=== PATIENT | male | born 1945 | race Caucasian/White ===

== ENCOUNTER 2019-04-28 23:58 | Emergency (ER) | payer BC, MEDICARE ==
[~2019-04-28] VITALS: Ht 180.3 cm; Wt 117.9 kg
[~2019-04-28 23:58] MED LIST: ACHD5005 PO; AMIO200T10 PO; ASP81TEC PO; METO25TA PO; OXYC1TAB28 PO; SULF1TAB38 PO; TMSL.4C PO
[2019-04-29] MEDS ORDERED: ASPIRIN 81 MG CHEW (CHILDREN'S ASA) PO ONE
[2019-04-29] MEDS ORDERED: meTOprolol 5 MG/5 ML (LOPRESSOR) VIAL IV ONE (00:15)
[2019-04-29] MEDS ORDERED: NITROGLYCERIN 2% OINT 1 GM UNIT DOSE PACKET TOP ONE (00:15)
[2019-04-29] MEDS ORDERED: ONDANSETRON 4 MG/2 ML (SDV) Z0FRAN IVP ONE (00:15)
[2019-04-29 00:18] LABS: HEMATOCRIT 37 % (40-54); HEMOGLOBIN 11.9 G/DL (13.3-17.7); MEAN CORPUSCULAR HEMOGLOBIN 28 PG (25-34); MEAN CORPUSCULAR HGB CONC 32 G/DL (32-36); MEAN CORPUSCULAR VOLUME 86 FL (80-99); MEAN PLATELET VOLUME 9.6 FL (7.4-10.4); PLATELET COUNT 217 10^3/uL (130-400); RED CELL DISTRIBUTION WIDTH 15.1 % (10.0-14.5); WHITE BLOOD COUNT 7.2 10^3/uL (4.3-11.0)
[2019-04-29 00:21] LABS: BASOPHILS % (AUTO) 0 % (0-10); EOSINOPHILS # (AUTO) 0.3 10^3/uL (0.0-0.3); EOSINOPHILS % (AUTO) 4 % (0-10); LYMPHOCYTES # (AUTO) 2.1 X 10^3 (1.0-4.0); LYMPHOCYTES % (AUTO) 29 % (12-44); MONOCYTES % (AUTO) 14 % (0-12); NEUTROPHILS # (AUTO) 3.9 X 10^3 (1.8-7.8); NEUTROPHILS % (AUTO) 53 % (42-75)
--- NOTE | 2019-04-29 00:28 | ED Chest Pain ---
General Chief Complaint: Chest Pain Stated Complaint: CHEST PAIN Nursing Triage Note: Pt started having chest pain around 2230 last night. Pt said it hasn't gotten any better so he came to ER. 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 Nursing Sepsis Screen: No Definite Risk Source: patient History of Present Illness Date Seen by Provider: Apr 29, 2019 Time Seen by Provider: 23:58 Initial Comments 73-year-old male presenting with complaints of epigastric and substernal chest pain. He states that it is a burning and sharp pain. He states that this same sort of pain he was having when he had four-vessel bypass. 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 He states that he last saw them a few weeks ago. He does have a pacemaker but is not sure if it's a defibrillator. He states that the pain started around 10:30 PM and came on while he was sitting at rest. He denies having anything make the pain worse. He has not tried taking anything for the pain better. Because the pain was feeling similar to when he had to have bypass surgery he finally came to the emergency department to be evaluated. He was having some mild nausea with this. He states that the pain is not moving anywhere in his chest pain was substernal and epigastric area. It does not go to his jaw or back or his arms. Allergies and Home Medications Allergies Coded Allergies: No Known Drug Allergies (Unverified , 01/05/12) Home Medications Amiodarone Hcl 200 Mg Tablet, 200 MG PO DAILY, (Reported) Aspirin 81 Mg Tabec, 81 MG PO DAILY, (Reported) Metoprolol Succinate 25 Mg Tab.sr.24h, 12.5 MG PO BID, (Reported) Tamsulosin Hcl 0.4 Mg Cap, 0.4 MG PO DAILY, (Reported) take 1/2 hour after supper in [place] Patient Home Medication List Home Medication List Reviewed: Yes Review of Systems Review of Systems Constitutional: No chills, No fever; malaise EENTM: No Symptoms Reported Respiratory: No Symptoms Reported Cardiovascular: See HPI Gastrointestinal: See HPI Genitourinary: No Symptoms Reported Musculoskeletal: no symptoms reported Skin: no symptoms reported Psychiatric/Neurological: No Symptoms Reported Endocrine: No Symptoms Reported Hematologic/Lymphatic: No Symptoms Reported Past Xlrpskl-Bqlkyz-Ricszs Hx Past Med/Social Hx: Reviewed Nursing Past Med/Soc Hx Patient Social History Alcohol Use: Denies Use Recreational Drug Use: No Smoking Status: Never a Smoker 2nd Hand Smoke Exposure: No Recent Foreign Travel: No Contact w/Someone Who Travel: No Recent Infectious Disease Expo: No Recent Hopitalizations: No Seasonal Allergies Seasonal Allergies: No Past Medical History Surgeries: Yes Coronary Stent, Defibrillator, Open Heart Surgery, Pacemaker Respiratory: No Cardiac: Yes Heart Attack, High Cholesterol, Hypertension Neurological: No Reproductive Disorders: No Genitourinary: No Gastrointestinal: No Musculoskeletal: No Endocrine: No HEENT: No Cancer: No Psychosocial: No Integumentary: No Blood Disorders: No Physical Exam Vital Signs Vital Signs - First Documented 04/29/19 04/29/19 00:05 00:30 Temp 97.1 Pulse 90 Resp 18 B/P (MAP) 165/76 (105) Pulse Ox 96 O2 Delivery Room Air O2 Flow Rate 2.00 FiO2 96 Capillary Refill : Less Than 3 Seconds Height, Weight, BMI Height: 5'11.00" Weight: 260lbs. oz. 117.746180af; BMI Method:Stated General Appearance: WD/WN, Mild Distress, Obese HEENT: PERRL/EOMI, Normal ENT Inspection, Pharynx Normal Neck: Normal Inspection, Non Tender, Supple Respiratory: Lungs Clear, Normal Breath Sounds, No Accessory Muscle Use, No Respiratory Distress; No Crackles, No Rhonci, No Stridor, No Wheezing; Other (sternal tenderness) Cardiovascular: Normal Peripheral Pulses, Extra Beats, Irregularly Irregular Gastrointestinal: Normal Bowel Sounds, No Pulsatile Mass, Soft, Tenderness (epigastric and sternal) Rectal: Deferred Extremity: Normal Capillary Refill, Non Tender, No Calf Tenderness Neurologic/Psychiatric: Alert, Oriented x3 Skin: Normal Color, Warm/Dry Progress/Results/Core Measures Results/Orders Lab Results Laboratory Tests Test 04/29/19 00:05 Range/Units White Blood Count 7.2 4.3-11.0 10^3/uL Red Blood Count 4.27 L 4.35-5.85 10^6/uL Hemoglobin 11.9 L 13.3-17.7 G/DL Hematocrit 37 L 40-54 % Mean Corpuscular Volume 86 80-99 FL Mean Corpuscular Hemoglobin 28 25-34 PG Mean Corpuscular Hemoglobin Concent 32 32-36 G/DL Red Cell Distribution Width 15.1 H 10.0-14.5 % Platelet Count 217 130-400 10^3/uL Mean Platelet Volume 9.6 7.4-10.4 FL Neutrophils (%) (Auto) 53 42-75 % Lymphocytes (%) (Auto) 29 12-44 % Monocytes (%) (Auto) 14 H 0-12 % Eosinophils (%) (Auto) 4 0-10 % Basophils (%) (Auto) 0 0-10 % Neutrophils # (Auto) 3.9 1.8-7.8 X 10^3 Lymphocytes # (Auto) 2.1 1.0-4.0 X 10^3 Monocytes # (Auto) 1.0 0.0-1.0 X 10^3 Eosinophils # (Auto) 0.3 0.0-0.3 10^3/uL Basophils # (Auto) 0.0 0.0-0.1 10^3/uL Prothrombin Time 24.2 H 12.2-14.7 SEC INR Comment 2.1 H 0.8-1.4 Activated Partial Thromboplast Time 40 H 24-35 SEC Sodium Level 136 135-145 MMOL/L Potassium Level 4.2 3.6-5.0 MMOL/L Chloride Level 97 L 98-107 MMOL/L Carbon Dioxide Level 28 21-32 MMOL/L Anion Gap 11 5-14 MMOL/L Blood Urea Nitrogen 21 H 7-18 MG/DL Creatinine 1.32 H 0.60-1.30 MG/DL Estimat Glomerular Filtration Rate 53 BUN/Creatinine Ratio 16 Glucose Level 105 70-105 MG/DL Calcium Level 9.7 8.5-10.1 MG/DL Corrected Calcium 9.8 8.5-10.1 MG/DL Magnesium Level 2.1 1.8-2.4 MG/DL Total Bilirubin 0.3 0.1-1.0 MG/DL Aspartate Amino Transf (AST/SGOT) 16 5-34 U/L Alanine Aminotransferase (ALT/SGPT) 16 0-55 U/L Alkaline Phosphatase 101 40-136 U/L Troponin T 23 H <=15 NG/L Pro-B-Type Natriuretic Peptide 1761.0 H <75.0 PG/ML Total Protein 7.1 6.4-8.2 GM/DL Albumin 3.9 3.2-4.5 GM/DL Lipase 35 8-78 U/L My Orders Orders - ENRICO RUIZ MD Cbc With Automated Diff (04/28/19 23:59) Magnesium (04/28/19 23:59) Chest 1 View Ap/Pa Only (04/28/19 23:59) Ekg Tracing (04/28/19 23:59) Comprehensive Metabolic Panel (04/28/19 23:59) Protime With Inr (04/28/19 23:59) Partial Thromboplastin Time (04/28/19 23:59) O2 (04/28/19 23:59) Monitor-Rhythm Ecg Trace Only (04/28/19 23:59) Aspirin Chewable Tablet (Baby Aspirin Ch (04/29/19 00:00) Ed Iv/Invasive Line Start (04/28/19 23:59) Troponin T (04/28/19 23:59) Probnp Fs (04/28/19 23:59) Nitroglycerin Ointment (Nitrobid Ointme (04/29/19 00:15) Ondansetron Injection (Zofran Injectio (04/29/19 00:15) Metoprolol Tartrate Injection (Lopressor (04/29/19 00:15) Ekg Tracing (04/29/19 00:34) Lipase (04/29/19 00:40) Fentanyl Injection (Sublimaze Injection (04/29/19 00:40) Pantoprazole Injection (Protonix Injecti (04/29/19 00:40) Fentanyl Injection (Sublimaze Injection (04/29/19 01:33) Medications Given in ED Current Medications Medications Dose Ordered Sig/Jono Route Start Time Stop Time Status Last Admin Dose Admin Aspirin 324 mg ONCE ONCE PO 04/29/19 00:00 04/29/19 00:02 DC 04/29/19 00:15 324 MG Metoprolol Tartrate 5 mg ONCE ONCE IV 04/29/19 00:15 04/29/19 00:16 DC 04/29/19 00:25 5 MG Nitroglycerin 1 inch ONCE ONCE TOP 04/29/19 00:15 04/29/19 00:16 DC 04/29/19 00:24 1 INCH Ondansetron HCl 4 mg ONCE ONCE IVP 04/29/19 00:15 04/29/19 00:16 DC 04/29/19 00:25 4 MG Vital Signs/I&O 04/29/19 04/29/19 00:05 00:30 Temp 97.1 Pulse 90 Resp 18 B/P (MAP) 165/76 (105) Pulse Ox 96 96 O2 Delivery Room Air Nasal Cannula O2 Flow Rate 2.00 FiO2 96 Blood Pressure Mean: 105 Progress Progress Note #1: Progress Note check ECG with labs and CXR. Give Aspirin 324 mg PO and NTG paste 1 inch for his pain symptoms. Given Metoprolol 5 mg IV for his slight elevation of blood pressure. If not having improved symptoms will also try fentanyl and protonix Progress Note #2: Time: 00:37 Progress Note 0037 On recheck he states the pain has spread across his abdomen but still hurts in chest and is not doing any better. will add on fentanyl and protonix. CBC and Chemistry do not show any acute significant abnormality. INR is therapeutic at 2.1 Troponin and ProBNP are pending still. Progress Note #3: Time: 00:53 Progress Note Patient reports his pain is essentially gone now. His labs to come back showing elevation of his troponin T 23 which is above the normal upper limits of 15. His BNP is elevated over 1700. His chest x-ray was showing the increased pulmonary vascular congestion and interstitial edema. Discussed with the patient that I felt he needed to be seen by cardiology if we evaluate his heart is considering he has elevation of his BNP and troponin. His pain also felt similar to when he had to have the bypass according to the patie nt so this is certainly concerning that his symptoms may be related to acute coronary syndrome. He has improved with treatment here with the aspirin, nitroglycerin, metoprolol, fentanyl. He also did get a dose of Protonix which may also have helped with this symptoms. Progress Note #4: Time: 01:05 Progress Note I spoke with Freya, RN, Nursing strip mine supervisor at [facility] about transfer of patient. She will have BULMARO Giron, food and beverage operations manager for hospitalist, give me a call back about the patient. Initial ECG Impression Date: Apr 29, 2019 Initial ECG Impression Time: 00:01 Initial ECG Rate: 84 Initial ECG Rhythm: A Fib/Flutter Initial ECG Comparisson: No Previous ECG Available Comment Atrial fibrillation with a heart rate 84 bpm. He also has ventricular paced complexes. His QT interval is 440 ms and QT corrected interval of 530 ms. He has no ST elevation. He has no prior tracing for comparison. The V6 lead was seen on the initial tracing so a repeat electrocardiogram was ordered EKG : EKG Time: 00:24 Rate: 88 Rhythm: A Fib/Flutter ECG Comparisson: Unchanged Comment Atrial fibrillation with a heart rate of 88 bpm. QT interval 411 ms and a QT corrected interval of 498 ms. He also has ventricular paced complexes. This appears similar to the tracing that was obtained on arrival at [facility]. No acute ST elevation Diagnostic Imaging Diagonstic Imaging: Xray Plain Films/CT/US/NM/MRI: chest Comments On my review of his 1 view CXR he has cardiomegaly with interstitial pulmonary edema. No definite infiltrate. Blunting of costophrenic angle, especially on right side. Reviewed: Reviewed by Me Departure Impression Primary Impression: Chest pain of uncertain etiology Additional Impressions: Elevated troponin level Elevated brain natriuretic peptide (BNP) level Disposition: XFER [facility] Condition: Stable Transfer Time Spoke to Accepting Phy: 01:42 Transfer Progress Notes At 0142 I spoke with BULMARO Giron who accepted the patient on behalf of Dr. Chrissie Coleman in transfer to [facility] for further evaluation and treatment of his chest pain and elevated troponin. Transfer Facility: [facility] Method of Transfer: EMS Departure-Patient Inst. Referrals: LEEANNA LAO MD (PCP) Primary Care Physician ENRICO RUIZ MD Apr 29, 2019 00:28
[2019-04-29 00:36] LABS: CREATININE SERUM 1.32 MG/DL (0.60-1.30); INR 2.1 (0.8-1.4); POTASSIUM 4.2 MMOL/L (3.6-5.0); PROTHROMBIN TIME PATIENT 24.2 SEC (12.2-14.7)
[2019-04-29 00:37] LABS: ALBUMIN 3.9 GM/DL (3.2-4.5); BILIRUBIN,TOTAL 0.3 MG/DL (0.1-1.0); CALCIUM 9.7 MG/DL (8.5-10.1); MAGNESIUM 2.1 MG/DL (1.8-2.4); TOTAL PROTEIN 7.1 GM/DL (6.4-8.2)
[2019-04-29] MEDS ORDERED: fentaNYL INJECTION 100 MCG/2 ML AMP IVP STA ×2 (00:40→01:33)
[2019-04-29] MEDS ORDERED: PANTOPRAZOLE 40 MG (PROTONIX) VIAL IV STA (00:40)
[2019-04-29 02:17] VITALS: BP 106/60
--- NOTE | 2019-04-29 06:32 | Diagnostic Imaging Report ---
INDICATION: Abnormal burning sensation in the chest. Pain. TECHNIQUE: Single view chest 11:54 PM. CORRELATION STUDY: None FINDINGS: Poststernotomy and coronary artery bypass surgery. Cardiac enlargement with component of mild pulmonary vascular congestion. The lungs are clear with no consolidating infiltrate. There is no significant effusion or pneumothorax. IMPRESSION: 1. Cardiac enlargement with presence of pulmonary vascular congestion and small pleural effusions. Followup imaging as clinically warranted. Dictated by: Dictated on workstation # [id number]
== END 2019-04-29 02:43 | disposition short-term general hospital (02) ==
LOC: EDUNIT# 23:58 → ER FS 23:59
DX: R07.89 Other chest pain (principal); R79.89 Other specified abnormal findings of blood chemistry; I25.2 Old myocardial infarction; E78.00 Pure hypercholesterolemia, unspecified; I10 Essential (primary) hypertension; Z79.82 Long term (current) use of aspirin; Z95.810 Presence of automatic (implantable) cardiac defibrillator; Z95.5 Presence of coronary angioplasty implant and graft
CPT/HCPCS: 36415; 71045; 80053; 83690; 83735; 83880; 84484; 85025; 85610; 85730; 93005; 93041; 96374; 96375; 96376

== ENCOUNTER → 2019-05-11 | Outpatient (CLI) | payer MEDICARE ==
[2019-05-11 15:53] LABS: INR 2.1 (0.8-1.4)
== END ==
LOC: LAB FS 15:07
PROVIDERS: ATTEND Family Medicine
DX: Z51.81 Encounter for therapeutic drug level monitoring (principal); Z79.01 Long term (current) use of anticoagulants
CPT/HCPCS: 36415; 85610

== ENCOUNTER 2019-07-29 23:35 | Emergency (ER) | payer MEDICARE ==
[~2019-07-29] VITALS: Ht 180.3 cm; Wt 117.9 kg
--- NOTE | 2019-07-29 23:56 | ED Abdominal Pain ---
General Stated Complaint: LOWER ABD PAIN,BLOOD IN URINE Source of Information: Patient Exam Limitations: No Limitations History of Present Illness Date Seen by Provider: Jul 29, 2019 Time Seen by Provider: 23:54 Initial Comments Patient developed sudden onset of suprapubic pain and hematuria around 5 p.m. tonight. Pain waxes and wanes in severity. It is worse when he attempts to urinate. No fevers or chills. He is nauseated but has not vomited. He has a history of kidney stones. He also has a significant heart history. He has undergone coronary artery bypass grafting he has a pacemaker and has a history of atrial fibrillation. Allergies and Home Medications Allergies Coded Allergies: No Known Drug Allergies (Unverified , 01/05/12) Home Medications Amiodarone Hcl 200 Mg Tablet, 200 MG PO DAILY, (Reported) Aspirin 81 Mg Tabec, 81 MG PO DAILY, (Reported) Metoprolol Succinate 25 Mg Tab.sr.24h, 12.5 MG PO BID, (Reported) Tamsulosin Hcl 0.4 Mg Cap, 0.4 MG PO DAILY, (Reported) take 1/2 hour after supper in [place] Patient Home Medication List Home Medication List Reviewed: Yes Review of Systems Review of Systems Constitutional: No fever EENTM: No Symptoms Reported Cardiovascular: No Symptoms Reported Gastrointestinal: Abdominal Pain, Nausea Genitourinary: Hematuria Musculoskeletal: no symptoms reported Skin: no symptoms reported Psychiatric/Neurological: No Symptoms Reported All Other Systems Reviewed Negative Unless Noted: Yes Past Nyycvdv-Koxziy-Geczcu Hx Patient Social History 2nd Hand Smoke Exposure: No Recent Hopitalizations: No Seasonal Allergies Seasonal Allergies: No Past Medical History Surgeries: Yes Coronary Stent, Defibrillator, Open Heart Surgery, Pacemaker Respiratory: No Cardiac: Yes Heart Attack, High Cholesterol, Hypertension Neurological: No Reproductive Disorders: No Genitourinary: No Gastrointestinal: No Musculoskeletal: No Endocrine: No HEENT: No Cancer: No Psychosocial: No Integumentary: No Blood Disorders: No Physical Exam Vital Signs Vital Signs - First Documented 07/29/19 07/30/19 23:40 00:25 Temp 99.9 Pulse 125 Resp 20 B/P (MAP) 148/81 (103) Pulse Ox 95 O2 Delivery Room Air O2 Flow Rate 2.00 Capillary Refill : Height/Weight/BMI Height: 5'11.00" Weight: 260lbs. oz. 117.798520jd; BMI Method:Stated General Appearance: WD/WN, no apparent distress HEENT: PERRL/EOMI, pharynx normal Neck: supple Respiratory: lungs clear, normal breath sounds Cardiovascular: normal peripheral pulses, no edema, tachycardia Gastrointestinal: non tender, soft Extremities: normal range of motion, normal inspection Neurologic/Psychiatric: alert, normal mood/affect Skin: normal color, warm/dry Progress/Results/Core Measures Results/Orders Lab Results Laboratory Tests Test 07/29/19 00:01 07/29/19 23:49 07/30/19 00:01 07/30/19 00:45 Range/Units Urine Color DARK YELLOW Urine Clarity CLOUDY Urine pH 6.0 5-9 Urine Specific [place] 1.025 H 1.016-1.022 Urine Protein 2+ H NEGATIVE Urine Glucose (UA) NEGATIVE NEGATIVE Urine Ketones NEGATIVE NEGATIVE Urine Nitrite POSITIVE NEGATIVE Urine Bilirubin NEGATIVE NEGATIVE Urine Urobilinogen 0.2 NORMAL MG/DL Urine Leukocyte Esterase 2+ H NEGATIVE Urine RBC (Auto) 3+ H NEGATIVE Urine RBC TNTC H /HPF Urine WBC 50-100 H /HPF Urine Squamous Epithelial Cells NONE /HPF Urine Crystals NONE /LPF Urine Bacteria NEGATIVE /HPF Urine Casts NONE /LPF Urine Mucus NEGATIVE /LPF Urine Culture Indicated YES White Blood Count 12.4 H 4.3-11.0 10^3/uL Red Blood Count 4.49 4.35-5.85 10^6/uL Hemoglobin 12.5 L 13.3-17.7 G/DL Hematocrit 39 L 40-54 % Mean Corpuscular Volume 87 80-99 FL Mean Corpuscular Hemoglobin 28 25-34 PG Mean Corpuscular Hemoglobin Concent 32 32-36 G/DL Red Cell Distribution Width 16.4 H 10.0-14.5 % Platelet Count 192 130-400 10^3/uL Mean Platelet Volume 9.8 7.4-10.4 FL Neutrophils (%) (Auto) 76 H 42-75 % Lymphocytes (%) (Auto) 13 12-44 % Monocytes (%) (Auto) 9 0-12 % Eosinophils (%) (Auto) 2 0-10 % Basophils (%) (Auto) 1 0-10 % Neutrophils # (Auto) 9.5 H 1.8-7.8 X 10^3 Lymphocytes # (Auto) 1.6 1.0-4.0 X 10^3 Monocytes # (Auto) 1.1 H 0.0-1.0 X 10^3 Eosinophils # (Auto) 0.2 0.0-0.3 10^3/uL Basophils # (Auto) 0.1 0.0-0.1 10^3/uL Sodium Level 138 135-145 MMOL/L Potassium Level 4.3 3.6-5.0 MMOL/L Chloride Level 101 98-107 MMOL/L Carbon Dioxide Level 24 21-32 MMOL/L Anion Gap 13 5-14 MMOL/L Blood Urea Nitrogen 25 H 7-18 MG/DL Creatinine 1.27 0.60-1.30 MG/DL Estimat Glomerular Filtration Rate 56 BUN/Creatinine Ratio 20 Glucose Level 118 H 70-105 MG/DL Calcium Level 9.3 8.5-10.1 MG/DL Corrected Calcium 9.4 8.5-10.1 MG/DL Total Bilirubin 0.4 0.1-1.0 MG/DL Aspartate Amino Transf (AST/SGOT) 14 5-34 U/L Alanine Aminotransferase (ALT/SGPT) 18 0-55 U/L Alkaline Phosphatase 106 40-136 U/L Total Protein 7.3 6.4-8.2 GM/DL Albumin 3.9 3.2-4.5 GM/DL Lipase 32 8-78 U/L Magnesium Level 2.2 1.6-2.4 MG/DL Troponin I < 0.30 <0.30 NG/ML Pro-B-Type Natriuretic Peptide 2172.0 H <75.0 PG/ML Prothrombin Time 24.7 H 12.2-14.7 SEC INR Comment 2.1 H 0.8-1.4 My Orders Orders - TERENCE RUIZ MD Cbc With Automated Diff (07/29/19 23:38) Comprehensive Metabolic Panel (07/29/19 23:38) Lipase (07/29/19 23:38) Ua Culture If Indicated (07/29/19 23:38) Ekg Tracing (07/29/19 23:52) Ns Iv 1000 Ml (Sodium Chloride 0.9%) (07/30/19 00:00) Ketorolac Injection (Toradol Injection) (07/30/19 00:00) Ct Abdomen/Pelvis Wo (07/29/19 23:52) Probnp Fs (07/30/19 00:00) Troponin I (07/30/19 00:00) Magnesium (07/30/19 00:00) Chest 1 View Ap/Pa Only (07/30/19 00:02) Oxygen-Administer (07/30/19 00:26) Ed Iv/Invasive Line Start (07/30/19 00:26) Urine Culture (07/29/19 00:01) Protime With Inr (07/30/19 00:45) Ceftriaxone For Iv Use (Rocephin For I (07/30/19 01:00) Ns (Ivpb) (Sodium C... W/Diltiazem Iv Fo (07/30/19 01:00) Medications Given in ED Current Medications Medications Dose Ordered Sig/Jono Route Start Time Stop Time Status Last Admin Dose Admin Ceftriaxone Sodium 1000 mg/ Sterile Water 10 ml @ 200 mls/hr ONCE ONCE IV 07/30/19 01:00 07/30/19 01:02 DC 07/30/19 00:57 200 MLS/HR Ketorolac Tromethamine 30 mg ONCE ONCE IVP 07/30/19 00:00 07/30/19 00:01 DC 07/30/19 00:16 30 MG Vital Signs/I&O 07/29/19 07/30/19 07/30/19 23:40 00:25 00:58 Temp 99.9 Pulse 125 106 Resp 20 26 B/P (MAP) 148/81 (103) 129/97 Pulse Ox 95 94 O2 Delivery Room Air Nasal Cannula Nasal Cannula O2 Flow Rate 2.00 2.00 Progress Progress Note : Time: 01:10 Progress Note Although the patient's chief complaint was abdominal pain and hematuria when walking back to his room he was noted be significantly tachycardic. This appeared to be atrial fibrillation. He has a history of atrial fibrillation and was cardioverted in the past. He does admit to be a little short of breath over the past few days. He denies chest pain. Diltiazem was given for rate control. He is already on warfarin. He needs transfer to higher level of care. His iron setter is at [facility] and last for the next ago. I spoke with Dr. Paez the hospitalist who agreed to admit the patient. Initial ECG Impression Date: Jul 30, 2019 Initial ECG Impression Time: 00:14 Initial ECG Rate: 117 Initial ECG Rhythm: A Fib/Flutter, PVC Initial ECG Intervals EKG shows atrial fibrillation with rapid ventricular rate in addition there is left from emerge block and Ventricular premature complexes Diagnostic Imaging Comments Chest x-ray showed cardiomegaly and mild failure. CT scan of the abdomen showed nonobstructing stones in the proximal right ureter. He also has gallstones Departure Impression Primary Impression: Atrial fibrillation with rapid ventricular response Additional Impressions: Ureteral calculi Urinary tract infection Congestive heart failure Disposition: 02 XFER [facility] Condition: Improved Transfer Time Spoke to Accepting Phy: 01:14 Transfer Progress Notes Spoke with Dr. Paez who accepted the transfer. Transfer Time: 01:14 Transfer Facility: [facility] Method of Transfer: EMS Departure-Patient Inst. Referrals: LEEANNA LAO MD (PCP/Family) Primary Care Physician TERENCE RUIZ MD Jul 29, 2019 23:55
[2019-07-30] MEDS ORDERED: KETOROLAC 30 MG/ML VIAL IVP ONE
[2019-07-30] MEDS ORDERED: NS IV 1000 ML 1,000 ML IV SCH
[2019-07-30 00:15] LABS: BASOPHILS # (AUTO) 0.1 10^3/uL (0.0-0.1); BASOPHILS % (AUTO) 1 % (0-10); EOSINOPHILS # (AUTO) 0.2 10^3/uL (0.0-0.3); EOSINOPHILS % (AUTO) 2 % (0-10); HEMATOCRIT 39 % (40-54); HEMOGLOBIN 12.5 G/DL (13.3-17.7); LYMPHOCYTES # (AUTO) 1.6 X 10^3 (1.0-4.0); LYMPHOCYTES % (AUTO) 13 % (12-44); MEAN CORPUSCULAR HEMOGLOBIN 28 PG (25-34); MEAN CORPUSCULAR HGB CONC 32 G/DL (32-36); MEAN CORPUSCULAR VOLUME 87 FL (80-99); MEAN PLATELET VOLUME 9.8 FL (7.4-10.4); MONOCYTES # (AUTO) 1.1 X 10^3 (0.0-1.0); MONOCYTES % (AUTO) 9 % (0-12); NEUTROPHILS # (AUTO) 9.5 X 10^3 (1.8-7.8); NEUTROPHILS % (AUTO) 76 % (42-75); PLATELET COUNT 192 10^3/uL (130-400); RED CELL DISTRIBUTION WIDTH 16.4 % (10.0-14.5); WHITE BLOOD COUNT 12.4 10^3/uL (4.3-11.0)
[2019-07-30 00:29] LABS: ALBUMIN 3.9 GM/DL (3.2-4.5); BILIRUBIN,TOTAL 0.4 MG/DL (0.1-1.0); CALCIUM 9.3 MG/DL (8.5-10.1); CREATININE SERUM 1.27 MG/DL (0.60-1.30); POTASSIUM 4.3 MMOL/L (3.6-5.0); TOTAL PROTEIN 7.3 GM/DL (6.4-8.2)
[2019-07-30 00:29] LABS: MAGNESIUM 2.2 MG/DL (1.6-2.4)
[2019-07-30 00:30] LABS: CLARITY,URINE CLOUDY
[2019-07-30 00:31] LABS: BILIRUBIN,URINE NEGATIVE (NEGATIVE); COLOR,URINE DARK YELLOW; GLUCOSE, URINE (UA) NEGATIVE (NEGATIVE); KETONES,URINE NEGATIVE (NEGATIVE); LEUKOCYTE ESTERASE ,URINE 2+ (NEGATIVE); NITRITE,URINE POSITIVE (NEGATIVE); PROTEIN,URINE 2+ (NEGATIVE); RBC,URINE TNTC /HPF; UROBILINOGEN,URINE 0.2 MG/DL (NORMAL)
[2019-07-30 00:32] LABS: BACTERIA,URINE NEGATIVE /HPF; WBC,URINE 50-100 /HPF
[2019-07-30] MEDS ORDERED: cefTRIAXone FOR IV USE 1,000 MG in WATER (STERILE) FOR INJECTION 10 ML IV ONE (01:00)
[2019-07-30] MEDS ORDERED: DILTIAZEM IV FOR DRIP 125 MG in NS (IVPB) 100 ML IV SCH (01:00)
[2019-07-30 01:06] LABS: INR 2.1 (0.8-1.4); PROTHROMBIN TIME PATIENT 24.7 SEC (12.2-14.7)
[2019-07-30 01:37] VITALS: BP 136/76
--- NOTE | 2019-07-30 07:10 | Diagnostic Imaging Report ---
PROCEDURE: CT abdomen and pelvis without contrast. TECHNIQUE: Multiple contiguous axial images were obtained through the abdomen and pelvis without the use of intravenous contrast. Auto Exposure Controls were utilized during the CT exam to meet ALARA standards for radiation dose reduction. INDICATION: Abdominal pain. No prior examination available for comparison. FINDINGS: There is cardiomegaly. There is some bibasilar atelectasis and/or pneumonitis. There are trace bilateral pleural effusions. The liver is normal in size without focal lesions. There is no biliary ductal dilatation. There is cholelithiasis. Spleen is normal. Pancreas is unremarkable. There are several stones in the right kidney. There is a staghorn calculus in the pelvis extending into the proximal ureter. Left kidney is normal. There is some atherosclerotic calcification of the aorta. Bowel gas pattern is nonspecific. There is no free air. There is no ascites. There are no focal inflammatory changes. There is diverticular disease without evidence of diverticulitis. There is no pelvic mass, adenopathy or free fluid. There are degenerative changes in the spine. IMPRESSION: Bibasilar atelectasis and/or pneumonitis and trace bilateral pleural effusions. Cholelithiasis. Multiple right renal and proximal right ureteral calculi without significant hydronephrosis. Diverticular disease without evidence of diverticulitis. Dictated by: Dictated on workstation # [id number]
--- NOTE | 2019-07-30 08:24 | Diagnostic Imaging Report ---
INDICATION: Lower abdominal pain with painful micturition. Comparison with 04/28/2019. FINDINGS: Cardiac enlargement is present with postoperative changes and pacemaker on the left. The lungs are well aerated. Mild prominence of interstitial markings with small bilateral pleural effusions. No consolidated infiltrates. IMPRESSION: Findings are consistent with mild chronic congestive failure. Overall appearance is similar to previous exam. Dictated by: Dictated on workstation # [id number]
== END 2019-07-30 02:05 | disposition short-term general hospital (02) ==
LOC: EDUNIT# 23:35 → ER FS 23:36
DX: I48.91 Unspecified atrial fibrillation (principal); N20.1 Calculus of ureter; N39.0 Urinary tract infection, site not specified; I11.0 Hypertensive heart disease with heart failure; I50.9 Heart failure, unspecified; E78.00 Pure hypercholesterolemia, unspecified; I25.2 Old myocardial infarction; Z87.442 Personal history of urinary calculi; Z95.1 Presence of aortocoronary bypass graft; Z95.0 Presence of cardiac pacemaker; Z79.82 Long term (current) use of aspirin
CPT/HCPCS: 36415; 71045; 74176; 80053; 81000; 83690; 83735; 83880; 84484; 85610; 87077; 87088; 87186; 93005

== ENCOUNTER 2019-08-13 12:01 | Emergency (ER) | payer MEDICARE ==
[~2019-08-13] VITALS: Ht 180.3 cm; Wt 118.1 kg
--- NOTE | 2019-08-13 12:08 | ED General ---
General Stated Complaint: SOB History of Present Illness Date Seen by Provider: Aug 13, 2019 Time Seen by Provider: 12:07 Initial Comments Patient presenting to the emergency department for evaluation of shortness of breath has been worsening over the past one week. Patient has a history of CHF and COPD and has to wear oxygen at baseline up to 4 L at time but has been wearing more recently and he also wears CPAP at night. Patient denies any productive cough fevers chills chest pain or increased edema. Appears to be in moderate respiratory distress as he was on 4 L on arrival and was satting 88% breathing approximately 30 times a minute. After he laid on the bed is breathing improved. He was recently admitted [facility] for multiple reasons and he has stopped blood thinners as he is going to have a kidney stone surgery. Allergies and Home Medications Allergies Coded Allergies: No Known Drug Allergies (Unverified , 01/05/12) Home Medications Aspirin 325 Mg Tablet.dr, 325 MG PO DAILY, (Reported) Furosemide 40 Mg Tablet, 40 MG PO DAILY, (Reported) make take add'l 40 mg at 1500 if legs swollen Gabapentin 100 Mg Capsule, 100 MG PO HS, (Reported) Patient Home Medication List Home Medication List Reviewed: Yes Review of Systems Review of Systems Constitutional: no symptoms reported EENTM: no symptoms reported Respiratory: short of breath Cardiovascular: no symptoms reported Gastrointestinal: no symptoms reported Genitourinary: no symptoms reported Musculoskeletal: no symptoms reported Skin: no symptoms reported Psychiatric/Neurological: No Symptoms Reported All Other Systems Reviewed Negative Unless Noted: Yes Past Rsnmiff-Acsyla-Wehhga Hx Patient Social History 2nd Hand Smoke Exposure: No Recent Hopitalizations: No Seasonal Allergies Seasonal Allergies: No Past Medical History Surgeries: Yes Coronary Stent, Defibrillator, Open Heart Surgery, Pacemaker Respiratory: No Cardiac: Yes Heart Attack, High Cholesterol, Hypertension Neurological: No Reproductive Disorders: No Sexually Transmitted Disease: No Genitourinary: No Gastrointestinal: No Musculoskeletal: No Endocrine: No HEENT: No Cancer: No Psychosocial: No Integumentary: No Blood Disorders: No Physical Exam Vital Signs Vital Signs - First Documented 08/13/19 12:08 Temp 36.9 Pulse 83 Resp 36 B/P (MAP) 113/56 (75) O2 Delivery Nasal Cannula O2 Flow Rate 4.00 Capillary Refill : Height, Weight, BMI Height: 5'11.00" Weight: 260lbs. oz. [id number]; BMI Method:Stated General Appearance: Chronically ill, Moderate Distress HEENT: PERRL/EOMI Neck: Supple Respiratory: Decreased Breath Sounds, Respiratory Distress, Wheezing Cardiovascular: Irregularly Irregular Gastrointestinal: Non Tender, Soft Back: Normal Inspection Extremity: Normal Capillary Refill Neurologic/Psychiatric: Alert, Oriented x3 Skin: Warm/Dry Focused Exam Lactate Level 08/13/19 12:15: Lactic Acid Level 2.85*H Lactic Acid Level Laboratory Tests Test 08/13/19 12:15 Lactic Acid Level 2.85 MMOL/L (0.50-2.00) *H Progress/Results/Core Measures Suspected Sepsis SIRS Temperature: Pulse: Respiratory Rate: Laboratory Tests 08/13/19 12:15: White Blood Count 9.7 Blood Pressure / Mean: 08/13/19 12:15: Lactic Acid Level 2.85*H Laboratory Tests 08/13/19 12:15: Creatinine 1.13, INR Comment 1.0, Platelet Count 376, Total Bilirubin 0.7 Results/Orders Lab Results Laboratory Tests Test 08/13/19 12:15 Range/Units White Blood Count 9.7 4.3-11.0 10^3/uL Red Blood Count 3.42 L 4.35-5.85 10^6/uL Hemoglobin 9.5 L 13.3-17.7 G/DL Hematocrit 30 L 40-54 % Mean Corpuscular Volume 88 80-99 FL Mean Corpuscular Hemoglobin 28 25-34 PG Mean Corpuscular Hemoglobin Concent 28 L 32-36 G/DL Red Cell Distribution Width 16.5 H 10.0-14.5 % Platelet Count 376 130-400 10^3/uL Mean Platelet Volume 9.1 7.4-10.4 FL Neutrophils (%) (Auto) 77 H 42-75 % Lymphocytes (%) (Auto) 10 L 12-44 % Monocytes (%) (Auto) 10 0-12 % Eosinophils (%) (Auto) 2 0-10 % Basophils (%) (Auto) 1 0-10 % Neutrophils # (Auto) 7.5 1.8-7.8 X 10^3 Lymphocytes # (Auto) 0.9 L 1.0-4.0 X 10^3 Monocytes # (Auto) 0.9 0.0-1.0 X 10^3 Eosinophils # (Auto) 0.2 0.0-0.3 10^3/uL Basophils # (Auto) 0.1 0.0-0.1 10^3/uL Prothrombin Time 14.0 12.2-14.7 SEC INR Comment 1.0 0.8-1.4 Activated Partial Thromboplast Time 29 24-35 SEC Sodium Level 140 135-145 MMOL/L Potassium Level 3.3 L 3.6-5.0 MMOL/L Chloride Level 99 98-107 MMOL/L Carbon Dioxide Level 27 21-32 MMOL/L Anion Gap 14 5-14 MMOL/L Blood Urea Nitrogen 11 7-18 MG/DL Creatinine 1.13 0.60-1.30 MG/DL Estimat Glomerular Filtration Rate > 60 BUN/Creatinine Ratio 10 Glucose Level 121 H 70-105 MG/DL Lactic Acid Level 2.85 *H 0.50-2.00 MMOL/L Calcium Level 9.1 8.5-10.1 MG/DL Corrected Calcium 9.6 8.5-10.1 MG/DL Magnesium Level 1.8 1.6-2.4 MG/DL Total Bilirubin 0.7 0.1-1.0 MG/DL Aspartate Amino Transf (AST/SGOT) 16 5-34 U/L Alanine Aminotransferase (ALT/SGPT) 18 0-55 U/L Alkaline Phosphatase 109 40-136 U/L Troponin I < 0.30 <0.30 NG/ML Pro-B-Type Natriuretic Peptide 2523.0 H <75.0 PG/ML Total Protein 6.7 6.4-8.2 GM/DL Albumin 3.4 3.2-4.5 GM/DL Lipase 17 8-78 U/L Micro Results Microbiology 08/13/19 Influenza Types A,B Antigen (EMILIANO) - Final, Complete My Orders Orders - BRITTANY TERRY DO Blood Culture (08/13/19 12:18) Cbc With Automated Diff (08/13/19 12:18) Comprehensive Metabolic Panel (08/13/19 12:18) Influenza A And B Antigens (08/13/19 12:18) Lactic Acid Analyzer (08/13/19 12:18) Lipase (08/13/19 12:18) Magnesium (08/13/19 12:18) Partial Thromboplastin Time (08/13/19 12:18) Probnp Fs (08/13/19 12:18) Protime With Inr (08/13/19 12:18) Troponin I (08/13/19 12:18) Chest 1 View Ap/Pa Only (08/13/19 12:18) Methylprednisolone Sod Succ (Solu-Medrol (08/13/19 12:30) Albuterol/Ipra Inhalation Soln (Duoneb I (08/13/19 12:30) Svn Small Volume Nebulizer (08/13/19 12:18) Potassium Chloride (Tablet) (K Dur Table (08/13/19 14:00) Blood Culture (08/13/19 13:50) Zosyn 4.5 Gm (X1)Ed Only (08/13/19 14:30) Medications Given in ED Current Medications Medications Dose Ordered Sig/Jono Route Start Time Stop Time Status Last Admin Dose Admin Albuterol/ Ipratropium 3 ml ONCE ONCE INH 08/13/19 12:30 08/13/19 12:31 DC 08/13/19 12:32 3 ML Methylprednisolone Sodium Succinate 125 mg ONCE ONCE IVP 08/13/19 12:30 08/13/19 12:31 DC 08/13/19 12:34 125 MG Potassium Chloride 40 meq ONCE ONCE PO 08/13/19 14:00 08/13/19 14:01 DC 08/13/19 14:05 40 MEQ Vital Signs/I&O 08/13/19 12:08 Temp 36.9 Pulse 83 Resp 36 B/P (MAP) 113/56 (75) O2 Delivery Nasal Cannula O2 Flow Rate 4.00 Capillary Refill : Progress Note : Progress Note Patient with symptoms that are more consistent with COPD in my opinion but we will go ahead and check labs imaging treat symptoms and reassess. Patient prefers to go to [facility] if he requires admission as he was just there last week. Patient's workup is quite abnormal as his x-ray shows diffuse edema as well as possible infiltrates as well. His BNP is elevated. He did improve significantly with Solu-Medrol and breathing treatments and his oxygen was titrated down to 3 L and maintained his oxygen saturation at 95%. We walked him up and down the hallways of the emergency department and he was able to walk around however he appeared dyspneic and his oxygen saturations dropped to 85%. He says that he is doing much better as he could only take 2-5 steps before coming to the emergency department without becoming severely dyspneic. I recommended that we transfer him to another facility given he is desaturating however he refused stating that he feels much better and he is supposed to follow with his doctors at [place] and 3 days. I told patient that he could suffer hypoxia or by not being fully treated and evaluated and he verbalized understanding and accepted the risks of and disability. He was given a dose of Zosyn here for possible pneumonia and will be continued on Augmentin as an outpatient. Patient told he is welcome to come back here at any time if he is feeling worse or has any changes. Patient and daughter aware and agreeable with plan for discharge and verbalized understanding of the need for short-term follow-up and strict ED return precautions discussed including worsening pain shortness of breath or other general concerns. Departure Impression Primary Impression: Asthma exacerbation with COPD (chronic obstructive pulmonary disease) Additional Impressions: CHF exacerbation Hypoxia Pneumonia Hypokalemia Disposition: 01 HOME, SELF-CARE Condition: Stable Departure-Patient Inst. Referrals: LEEANNA LAO MD (PCP/Family) Primary Care Physician Patient Instructions: Exacerbation of COPD Scripts Prednisone (Prednisone) 20 Mg Tab 60 MG PO DAILY, #12 TAB 0 Refills Prov: BRITTANY TERRY DO 08/13/19 Amoxicillin/Potassium Clav (Augmentin 875-125 Tablet) 1 Each Tablet 1 EACH PO BID, #14 TAB 0 Refills Prov: BRITTANY TERRY DO 08/13/19 BIRTTANY TERRY DO Aug 13, 2019 12:08
--- NOTE | 2019-08-13 12:08 | NUR ---
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 Pt is labored breathing wearing home O2 at 5 L/M reporting unable to breathe well since last Tuesday. Dgt states worsening since last night. 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 Pt did work Tuesday fro 6 hrs. Pt was admitted to [facility] 07/31 for A Fib RVR and kidney stones. Pt was released on Friday 08/03. Pt states, "They stopped my heart to restart." Assuming pt was cardioverted but patient and family can not clearly state if he was successful to get out of A Fib at that time. Pt is noted in irregular rhythm A Fib with controlled rate. Pt has numerous appearing PVC's with any exertional activity. Dr Nguyễn to room to assess pt. Pt has had an extreme difficulty resting and has been removing his CPAP at night as unable to tolerate as can't breathe. Pt explains to RN and he was taken off all his meds almost to prepare for upcoming ESWL surgery. Pt is off Warfarin and Aspirin since discharge. Pt is poor historian of meds and list in [place] was not correct with Med Reconciliation. Appears to have started Cartia XL 180 mg from release but dgt agreed patient's med list was written along time ago.
[2019-08-13] MEDS ORDERED: RT-ALBUTEROL/IPRATROPIUM 3 ML (DUONEB) VIAL INH ONE (12:30)
[2019-08-13] MEDS ORDERED: methylPREDNISolone 125 MG (Solu-MEDROL) VIAL IVP ONE (12:30)
[2019-08-13] MEDS ORDERED: warfarin (13:01)
[2019-08-13] MEDS ORDERED: GABA-486 PO (13:01)
[2019-08-13] MEDS ORDERED: DILT180C54 (13:01)
[2019-08-13] MEDS ORDERED: FURO40TA4 PO (13:01)
[2019-08-13] MEDS ORDERED: CARV3.122 (13:01)
[2019-08-13] MEDS ORDERED: ASPI325T32 PO (13:01)
[2019-08-13] MEDS ORDERED: LISI2.5T (13:01)
--- NOTE | 2019-08-13 13:05 | Diagnostic Imaging Report ---
PATIENT HISTORY: Shortness of breath. TECHNIQUE: Frontal view of the chest. COMPARISON: 07/29/2019. FINDINGS: There is stable cardiomegaly. Sternotomy wires, post CABG changes, and pacemaker appear stable. There is central vascular congestion and bibasilar airspace opacities. There are small bilateral pleural effusions. No pneumothorax is seen. The overall aeration appears worsened compared to 07/29/2019. IMPRESSION: Cardiomegaly, vascular congestion, and increasing bibasilar airspace opacities with small pleural effusions. This is likely due to edema with infection in the differential as well. The overall aeration has mildly decreased since the prior exam. Dictated by: Dictated on workstation # [id number]
[2019-08-13 13:13] LABS: HEMATOCRIT 30 % (40-54); HEMOGLOBIN 9.5 G/DL (13.3-17.7); MEAN CORPUSCULAR HEMOGLOBIN 28 PG (25-34); MEAN CORPUSCULAR VOLUME 88 FL (80-99); WHITE BLOOD COUNT 9.7 10^3/uL (4.3-11.0)
[2019-08-13 13:14] LABS: BASOPHILS # (AUTO) 0.1 10^3/uL (0.0-0.1); BASOPHILS % (AUTO) 1 % (0-10); EOSINOPHILS # (AUTO) 0.2 10^3/uL (0.0-0.3); EOSINOPHILS % (AUTO) 2 % (0-10); LYMPHOCYTES # (AUTO) 0.9 X 10^3 (1.0-4.0); LYMPHOCYTES % (AUTO) 10 % (12-44); MEAN CORPUSCULAR HGB CONC 28 G/DL (32-36); MEAN PLATELET VOLUME 9.1 FL (7.4-10.4); MONOCYTES # (AUTO) 0.9 X 10^3 (0.0-1.0); MONOCYTES % (AUTO) 10 % (0-12); NEUTROPHILS # (AUTO) 7.5 X 10^3 (1.8-7.8); NEUTROPHILS % (AUTO) 77 % (42-75); PLATELET COUNT 376 10^3/uL (130-400); RED CELL DISTRIBUTION WIDTH 16.5 % (10.0-14.5)
[2019-08-13 13:32] LABS: ALKALINE PHOSPHATASE 109 U/L (40-136); BILIRUBIN,TOTAL 0.7 MG/DL (0.1-1.0); BUN/CREATININE RATIO 10; CALCIUM 9.1 MG/DL (8.5-10.1); CARBON DIOXIDE 27 MMOL/L (21-32); CHLORIDE 99 MMOL/L (98-107); CREATININE SERUM 1.13 MG/DL (0.60-1.30); GFR ESTIMATED > 60; GLUCOSE 121 MG/DL (70-105); MAGNESIUM 1.8 MG/DL (1.6-2.4); POTASSIUM 3.3 MMOL/L (3.6-5.0); SODIUM 140 MMOL/L (135-145)
[2019-08-13 13:33] LABS: ALANINE AMINOTRANSFERASE 18 U/L (0-55); ALBUMIN 3.4 GM/DL (3.2-4.5); LIPASE 17 U/L (8-78); TOTAL PROTEIN 6.7 GM/DL (6.4-8.2)
[2019-08-13] MEDS ORDERED: KCL 20 MEQ TAB (K-DUR) PO ONE (14:00)
--- NOTE | 2019-08-13 14:15 | NUR ---
Patient ambulated in hallway while be SaO2 monitored and wearing portable O2 at 3 L/M. Pt is 95% baseline of sitting, maintaining respirations 24-32 depending on activity. Minimal movement and activity including talking raises to low 30's. Pt walked to bathroom doorway then to end of nurse's station and noted just a few feet into this ambulation the degree of increasing RR's and desat to 85% on O2 at 3 L/M. Pt verbalizing this does happen at home and he wants to go home. Dr Nguyễn notified.
[2019-08-13] MEDS ORDERED: PRD20T PO (14:26)
[2019-08-13] MEDS ORDERED: AMOX-358 PO (14:26)
[2019-08-13] MEDS ORDERED: PIPERACILLIN SODIUM/TAZOBACTAM 4.5 GM in NS (IVPB) 100 ML IV ONE (14:30)
[2019-08-13 15:11] VITALS: BP 142/58
== END 2019-08-13 15:11 | disposition home or self-care (01) ==
LOC: EDUNIT# 12:01 → ER FS 12:03
DX: J45.901 Unspecified asthma with (acute) exacerbation (principal); J44.9 Chronic obstructive pulmonary disease, unspecified; I11.0 Hypertensive heart disease with heart failure; I50.9 Heart failure, unspecified; R09.02 Hypoxemia; J18.9 Pneumonia, unspecified organism; E87.6 Hypokalemia; E78.00 Pure hypercholesterolemia, unspecified; Z99.81 Dependence on supplemental oxygen; Z79.82 Long term (current) use of aspirin; Z95.5 Presence of coronary angioplasty implant and graft; Z95.810 Presence of automatic (implantable) cardiac defibrillator
CPT/HCPCS: 36415; 71045; 80053; 83605; 83690; 83735; 83880; 84484; 85025; 85610; 85730; 87040; 87804; 93005; 94640; 96374; 96375

== ENCOUNTER 2019-10-18 19:14 | Inpatient (IN) | payer MEDICARE ==
[~2019-10-18] VITALS: Ht 180 cm; Wt 114.1 kg
[~2019-10-18 19:14] MED LIST changes: +AMOX-358 PO; +ASPI325T32 PO; +CARV3.122 PO; +DILT180C54; +FURO40TA4 PO; +GABA-486 PO; +LISI2.5T PO; +PRD20T PO; +warfarin
[2019-10-18] MEDS ORDERED: NS IV 1000 ML 1,000 ML IV ONE (19:27)
[2019-10-18] MEDS ORDERED: fentaNYL INJECTION 100 MCG/2 ML AMP IVP STA ×3 (20:00→22:37)
[2019-10-18 20:02] LABS: BACTERIA,URINE TRACE /HPF; BILIRUBIN,URINE NEGATIVE (NEGATIVE); CLARITY,URINE CLOUDY; COLOR,URINE AMBER; GLUCOSE, URINE (UA) NEGATIVE (NEGATIVE); KETONES,URINE NEGATIVE (NEGATIVE); LEUKOCYTE ESTERASE ,URINE 1+ (NEGATIVE); NITRITE,URINE NEGATIVE (NEGATIVE); PH,URINE 5.5 (5-9); PROTEIN,URINE 1+ (NEGATIVE); RBC,URINE >100 /HPF
[2019-10-18 20:04] LABS: BASOPHILS # (AUTO) 0.1 10^3/uL (0.0-0.1); BASOPHILS % (AUTO) 1 % (0-10); EOSINOPHILS # (AUTO) 0.2 10^3/uL (0.0-0.3); EOSINOPHILS % (AUTO) 2 % (0-10); HEMATOCRIT 37 % (40-54); HEMOGLOBIN 11.4 G/DL (13.3-17.7); LYMPHOCYTES # (AUTO) 2.1 X 10^3 (1.0-4.0); LYMPHOCYTES % (AUTO) 21 % (12-44); MEAN CORPUSCULAR HEMOGLOBIN 27 PG (25-34); MEAN CORPUSCULAR HGB CONC 31 G/DL (32-36); MEAN CORPUSCULAR VOLUME 88 FL (80-99); MEAN PLATELET VOLUME 9.8 FL (7.4-10.4); MONOCYTES # (AUTO) 0.8 X 10^3 (0.0-1.0); MONOCYTES % (AUTO) 8 % (0-12); NEUTROPHILS # (AUTO) 6.6 X 10^3 (1.8-7.8); NEUTROPHILS % (AUTO) 68 % (42-75); PLATELET COUNT 262 10^3/uL (130-400); RED CELL DISTRIBUTION WIDTH 15.6 % (10.0-14.5); WHITE BLOOD COUNT 9.8 10^3/uL (4.3-11.0)
[2019-10-18 20:09] LABS: POTASSIUM 4.2 MMOL/L (3.6-5.0)
[2019-10-18 20:10] LABS: ALBUMIN 3.4 GM/DL (3.2-4.5); BILIRUBIN,TOTAL 0.4 MG/DL (0.1-1.0); CALCIUM 9.3 MG/DL (8.5-10.1); CREATININE SERUM 1.25 MG/DL (0.60-1.30); TOTAL PROTEIN 7.3 GM/DL (6.4-8.2)
--- NOTE | 2019-10-18 20:24 | ED Abdominal Pain ---
General Chief Complaint: Abdominal/GI Problems Stated Complaint: STOMACH PAINS Nursing Triage Note: PT COMPLAINING OF MID ABD PAIN THAT STARTED EARLY THS MORNING. PT TOOK AN OXYCODONE AROUND 9AM AND ZOFRAN. PT STATES THEY HELPED BUT THE PAIN HAS RETURNED. Sepsis Screen: No Definite Risk Source of Information: Patient Exam Limitations: No Limitations History of Present Illness Date Seen by Provider: Oct 18, 2019 Time Seen by Provider: 19:39 Initial Comments Here with report of midabdominal pain is started this morning. It has been going on all day. States he woke up this morning with this pain. He did eat a turkey sandwich that was low sodium last night and then had the pain this morning. He did have a normal bowel movement this morning without blood. Has had some abnormal urine recently that is cloudy. He knows that he has blood in his urine and that's long-standing that hasn't changed. He is wearing a life vest and does have pacemaker placed. Denies chest pain, breathing problems or vomiting. Pain is central and radiates each way laterally from the central pain. Timing/Duration: 12 Hours Severity/Quality: Moderate, Severe, Aching Location: Epigastric, Periumbilical Radiation: RUQ, LUQ, RLQ, LLQ Activities at Onset: None Modifying Factors: Improves With Resting Associated Symptoms: No Back Pain, No Chest Pain, No Fever/Chills, No Heartburn, No Nausea/Vomiting, No Shortness of Air, No Weakness Allergies and Home Medications Allergies Coded Allergies: No Known Drug Allergies (Unverified , 01/05/12) Home Medications Amoxicillin/Potassium Clav 1 Each Tablet, 1 EACH PO BID Prescribed by: BRITTANY TERRY on 08/13/191425 Aspirin 325 Mg Tablet.dr, 325 MG PO DAILY, (Reported) Furosemide 40 Mg Tablet, 40 MG PO DAILY, (Reported) make take add'l 40 mg at 1500 if legs swollen Gabapentin 100 Mg Capsule, 100 MG PO HS, (Reported) Prednisone 20 Mg Tab, 60 MG PO DAILY Prescribed by: BRITTANY TERRY on 08/13/19 142 Patient Home Medication List Home Medication List Reviewed: Yes Review of Systems Review of Systems Constitutional: see HPI; No chills, No fever EENTM: No Symptoms Reported Respiratory: No Symptoms Reported Cardiovascular: See HPI; Denies Chest Pain, Denies Edema Gastrointestinal: Abdominal Pain; Denies Diarrhea, Denies Nausea, Denies Vomiting Genitourinary: Denies Flank Pain; Hematuria Musculoskeletal: no symptoms reported Skin: no symptoms reported Psychiatric/Neurological: No Symptoms Reported All Other Systems Reviewed Negative Unless Noted: Yes Past Lublohg-[place] Hx Past Med/Social Hx: Reviewed Nursing Past Med/Soc Hx Patient Social History Alcohol Use: Denies Use Recreational Drug Use: No Former Smoker, Quit: Nov 28, 1975 2nd Hand Smoke Exposure: No Recent Foreign Travel: No Contact w/Someone Who Travel: No Recent Infectious Disease Expo: No Recent Hopitalizations: No Physical Abuse: No Sexual Abuse: No Mistreated: No Seasonal Allergies Seasonal Allergies: No Past Medical History Surgeries: Yes Coronary Stent, Defibrillator, Open Heart Surgery, Pacemaker Respiratory: Yes COPD Cardiac: Yes (CABG, Pacemaker ) Atrial Fibrillation, Heart Attack, High Cholesterol, Hypertension Neurological: No Reproductive Disorders: No Sexually Transmitted Disease: No Genitourinary: Yes Gastrointestinal: No Musculoskeletal: No Endocrine: No HEENT: No Cancer: No Psychosocial: No Integumentary: No Blood Disorders: No Family Medical History Reviewed Nursing Family Hx No Pertinent Family Hx Physical Exam Vital Signs Vital Signs - First Documented 10/18/19 19:17 Temp 36.5 Pulse 77 Resp 22 B/P (MAP) 156/41 (79) Pulse Ox 96 O2 Delivery Room Air Capillary Refill : Less Than 3 Seconds Height/Weight/BMI Height: 5'11.00" Weight: 260lbs. oz. 117.292573go; 35.00 BMI Method:Stated General Appearance: WD/WN, no apparent distress HEENT: PERRL/EOMI, pharynx normal Neck: full range of motion, supple Respiratory: lungs clear, normal breath sounds Cardiovascular: no edema, no murmur, other (paced rhythm on monitor with rate of 75.) Gastrointestinal: soft; No guarding, No rebound; tenderness (globally), other (bruising throughout the lower abdomen from previous Lovenox injections per the patient) Extremities: non-tender, normal inspection Back: normal inspection, no CVA tenderness, no vertebral tenderness Neurologic/Psychiatric: alert, oriented x 3 Skin: warm/dry, ecchymosis (as described above) Focused Exam Lactate Level 10/18/19 21:25: Lactic Acid Level 2.47*H Lactic Acid Level Laboratory Tests Test 10/18/19 21:25 Lactic Acid Level 2.47 MMOL/L (0.50-2.00) *H Progress/Results/Core Measures Results/Orders Lab Results Laboratory Tests Test 10/18/19 10:51 10/18/19 19:16 10/18/19 19:38 10/18/19 21:25 Range/Units Prothrombin Time 24.0 H 12.2-14.7 SEC INR Comment 2.1 H 0.8-1.4 Activated Partial Thromboplast Time 40 H 24-35 SEC Urine Color JOSEPH H Urine Clarity CLOUDY Urine pH 5.5 5-9 Urine Specific [place] 1.015 L 1.016-1.022 Urine Protein 1+ H NEGATIVE Urine Glucose (UA) NEGATIVE NEGATIVE Urine Ketones NEGATIVE NEGATIVE Urine Nitrite NEGATIVE NEGATIVE Urine Bilirubin NEGATIVE NEGATIVE Urine Urobilinogen 0.2 < = 1.0 MG/DL Urine Leukocyte Esterase 1+ H NEGATIVE Urine RBC (Auto) 3+ H NEGATIVE Urine RBC >100 H /HPF Urine WBC 5-10 H /HPF Urine Squamous Epithelial Cells NONE /HPF Urine Crystals NONE /LPF Urine Bacteria TRACE /HPF Urine Casts PRESENT /LPF Urine Hyaline Casts 5-10 H /LPF Urine Mucus MODERATE H /LPF Urine Culture Indicated YES White Blood Count 9.8 4.3-11.0 10^3/uL Red Blood Count 4.26 L 4.35-5.85 10^6/uL Hemoglobin 11.4 L 13.3-17.7 G/DL Hematocrit 37 L 40-54 % Mean Corpuscular Volume 88 80-99 FL Mean Corpuscular Hemoglobin 27 25-34 PG Mean Corpuscular Hemoglobin Concent 31 L 32-36 G/DL Red Cell Distribution Width 15.6 H 10.0-14.5 % Platelet Count 262 130-400 10^3/uL Mean Platelet Volume 9.8 7.4-10.4 FL Neutrophils (%) (Auto) 68 42-75 % Lymphocytes (%) (Auto) 21 12-44 % Monocytes (%) (Auto) 8 0-12 % Eosinophils (%) (Auto) 2 0-10 % Basophils (%) (Auto) 1 0-10 % Neutrophils # (Auto) 6.6 1.8-7.8 X 10^3 Lymphocytes # (Auto) 2.1 1.0-4.0 X 10^3 Monocytes # (Auto) 0.8 0.0-1.0 X 10^3 Eosinophils # (Auto) 0.2 0.0-0.3 10^3/uL Basophils # (Auto) 0.1 0.0-0.1 10^3/uL Sodium Level 136 135-145 MMOL/L Potassium Level 4.2 3.6-5.0 MMOL/L Chloride Level 100 98-107 MMOL/L Carbon Dioxide Level 21 21-32 MMOL/L Anion Gap 15 H 5-14 MMOL/L Blood Urea Nitrogen 19 H 7-18 MG/DL Creatinine 1.25 0.60-1.30 MG/DL Estimat Glomerular Filtration Rate 57 BUN/Creatinine Ratio 15 Glucose Level 126 H 70-105 MG/DL Calcium Level 9.3 8.5-10.1 MG/DL Corrected Calcium 9.8 8.5-10.1 MG/DL Total Bilirubin 0.4 0.1-1.0 MG/DL Aspartate Amino Transf (AST/SGOT) 32 5-34 U/L Alanine Aminotransferase (ALT/SGPT) 41 0-55 U/L Alkaline Phosphatase 121 40-136 U/L C-Reactive Protein 2.07 H <0.50 MG/DL Total Protein 7.3 6.4-8.2 GM/DL Albumin 3.4 3.2-4.5 GM/DL Lactic Acid Level 2.47 *H 0.50-2.00 MMOL/L My Orders Orders - CRISTINE BOWMAN MD Cbc With Automated Diff (10/18/19 19:) Comprehensive Metabolic Panel (10/18/19 19:) Ua Culture If Indicated (10/18/19:) Crp Fs (10/18/19 19:27) Ed Iv/Invasive Line Start (10/18/19 19:27) Ns Iv 1000 Ml (Sodium Chloride 0.9%) (10/18/19 19:27) Fentanyl Injection (Sublimaze Injection (10/18/19 20:00) Urine Culture (10/18/19 19:16) Ct Abdomen/Pelvis W (10/18/19 20:16) Iohexol Injection (Omnipaque 350 Mg/Ml 1 (10/18/19 20:30) Received Contrast (Hold Metformin- Contr (10/18/19 20:30) Sodium Chloride Flush (Catheter Flush Sy (10/18/19 20:30) Ns (Ivpb) (Sodium Chloride 0.9% Ivpb Bag (10/18/19 20:30) Fentanyl Injection (Sublimaze Injection (10/18/19 20:28) Ondansetron Injection (Zofran Injectio (10/18/19 20:43) Ondansetron Injection (Zofran Injectio (10/18/19 21:00) Lactic Acid Analyzer (10/18/19 21:11) Blood Culture (10/18/19 21:11) Promethazine Injection (Phenergan Injec (10/18/19 21:13) Ceftriaxone For Iv Use (Rocephin For I (10/18/19 22:15) Chest 1 View Ap/Pa Only (10/18/19 22:28) Piperacillin Sodium/Tazobactam (Zosyn Vi (10/18/19 22:45) Fentanyl Injection (Sublimaze Injection (10/18/19 22:37) Protime With Inr (10/18/19 22:44) Partial Thromboplastin Time (10/18/19 22:44) Medications Given in ED Current Medications Medications Dose Ordered Sig/Jono Route Start Time Stop Time Status Last Admin Dose Admin Iohexol 125 ml ONCE ONCE IV 10/18/19 20:30 10/18/19 20:31 DC 10/18/19 20:37 125 ML Ondansetron HCl 8 mg ONCE ONCE IVP 10/18/19 21:00 10/18/19 21:02 DC 10/18/19 21:04 8 MG Piperacillin Sod/ Tazobactam Sod 4.5 gm/Sodium Chloride 100 ml @ 200 mls/hr ONCE ONCE IV 10/18/19 22:45 10/18/19 23:14 DC 10/18/19 23:00 200 MLS/HR Sodium Chloride 10 ml NEEDED PRN IV 10/18/19 20:30 10/18/19 20:37 10 ML Sodium Chloride 100 ml ONCE ONCE IV 10/18/19 20:30 10/18/19 20:31 DC 10/18/19 20:37 100 ML Sodium Chloride 1,000 ml @ 0 mls/hr Q0M ONCE IV 10/18/19 19:27 10/18/19 19:29 DC 10/18/19 20:00 999 MLS/HR Vital Signs/I&O 10/18/19 19:17 Temp 36.5 Pulse 77 Resp 22 B/P (MAP) 156/41 (79) Pulse Ox 96 O2 Delivery Room Air Blood Pressure Mean: 79 POS Progress Progress Note : Progress Note Seen and evaluated. IV, labs, UA, normal saline 1 L bolus. Fentanyl 75 g IV. Labs and pain meds delayed due to difficult IV stick but we were able to ultimately get IV. CT abdomen and pelvis with contrast ordered. Monitor patient. 2100: Patient had apparent vasovagal episode while in CT. This was shortly after he received his second dose of fentanyl for pain. He resolved with just stimulation and time. Patient did have his Lifepak off at the time for CT scan. We did go ahead and reapply that and just kept on for the CT. Monitor patient. Heart rate remains in the 70s and 80s. He is paced. 2300: Chest x-ray reveals right lower lobe and probably left lower lobe pneumonia and this is noted on CT as well. He has questions of urinary tract infection. Initially considered Rocephin that he has had inpatient stay for several days and the last 90 days. We will change that to Zosyn 4.5 g IV and continue that inpatient. I discussed the case with Dr. Hodge and she accepts patient for admission, inpatient status. I have discussed the case with Dr. Montoya and he accepts patient for consult. I have placed consult with Dr. Rodríguez as well. Patient was placed on 2 L of O2 as his saturations were dropping into the 80s. He has done much better on oxygen. Blood pressures remained 120s to 130s systolic throughout. I do not believe the patient has findings concerning for severe sepsis or septic shock and I do not believe he would benefit from high-volume fluid resuscitation at this time. He does have history of CHF and fluids should be given judiciously, at least initially. This could be reconsidered after admission. He is otherwise in stable now. 2337: EMS. Report given by me. Blood pressure remains 130 systolic with heart rate 80s and 90s. Patient agrees to plan. Diagnostic Imaging Diagonstic Imaging: CT Plain Films/CT/US/NM/MRI: abdomen, pelvis Comments [facility]. POS [place], [place] POS NAME: ZAK WHITMORE REC#: [id number] PT STATUS: REG ER : 1945 PHYSICIAN: CRISTINE BOWMAN MD ADMIT DATE: 10/18/19/ER FS Signed POSDate of Exam:10/18/19 CT ABDOMEN/PELVIS W PROCEDURE: CT abdomen and pelvis with contrast. TECHNIQUE: Multiple contiguous axial images were obtained through the abdomen and pelvis after administration of intravenous contrast. Auto Exposure Controls were utilized during the CT exam to meet ALARA standards for radiation dose reduction. INDICATION: Abdominal pain. CORRELATION STUDY: 07/30/2019. FINDINGS: Examination is compromised with extensive metallic artifact over the lower chest and upper abdomen. Heart size enlarged. Pacemaker leads. Gastroesophageal junction normal. Trace pleural effusions. Bibasilar atelectasis versus infiltrate. There is, however, persistent slightly rounded density in subpleural region in the right lower lobe. Liver, spleen, pancreas and adrenal glands demonstrate no acute abnormality. Cholelithiasis with presence of gallstones at the gallbladder neck. Gallbladder otherwise appears unremarkable. No bile duct dilatation. Fatty atrophic change of the pancreas. Lobulated asymmetric areas of scarring in both kidneys, right slightly greater than left. Calcifications are present. There is presence of a renal stone in the right renal pelvis. There is presence of a right ureteral stent that appears to be in satisfactory position with the right collecting system decompressed. No significant perinephric stranding. There is atherosclerotic change about the abdominal aorta and iliac vessels. Gastrointestinal tract demonstrates moderate amount of retained gastric contents. No small bowel obstruction. Colon is relatively decompressed. A few colonic diverticula without evidence for acute diverticulitis. Negative for appendicitis. No abdominal ascites or free air. Densities in the subcutaneous tissues may be owing to prior subcutaneous injections, nonspecific. Urinary bladder is slightly thick walled likely owing to its decompressed state. The prostate gland is small. Osseous structures demonstrate no acute abnormality. IMPRESSION: 1. Negative for acute abnormality about the abdomen and/or pelvis. 2. Cholelithiasis. 3. Multiple right renal proximal right ureteral calculi with interval placement of a right ureteral stent. No hydronephrosis or obstruction. 4. Consolidation of both lung bases. This may be atelectasis and/or infiltrate. However, there is a somewhat rounded density at the right lung base persisting, appearing unchanged. May reflect chronic rounded atelectasis. The possibility pf neoplasm considered less likely but not excluded. Dictated by: Dictated on workstation # [id number] Dict: 10/18/192199 Trans: 10/18/192250 Isidro [id number] Interpreted by: EZEKIEL ENCARNACION DO Electronically signed by: EZEKIEL ENCARNACION DO 10/18/192250 Diagonstic Imaging: Xray Plain Films/CT/US/NM/MRI: chest Comments Right lower lobe infiltrate with suspicion of left lower lobe infiltrate. Departure Communication (Admissions) Time/Spoke to Admitting Phy: 22:29 Time/Spoke to Consulting Phy: 22:40 Impression Primary Impression: Pneumonia of both lower lobes Qualified Codes: J18.1 - Lobar pneumonia, unspecified organism Additional Impressions: UTI (urinary tract infection) Qualified Codes: N30.00 - Acute cystitis without hematuria Sepsis Qualified Codes: A41.9 - Sepsis, unspecified organism Disposition: ADMITTED INPATIENT Condition: Stable Admissions Decision to Admit Reason: Admit from ER (General) Decision to Admit/Date: Oct 18, 2019 Time/Decision to Admit Time: 22:29 Departure-Patient Inst. Referrals: LEEANNA LAO MD (PCP/Family) Primary Care Physician CRISTINE BOWMAN MD Oct 18, 2019 20:24 POS
[2019-10-18] MEDS ORDERED: NS 100 ML (IVPB) BAG IV ONE (20:30)
[2019-10-18] MEDS ORDERED: IOHEXOL 350 MG/ML 150 ML (OMNIPAQUE 350) VIAL IV ONE (20:30)
[2019-10-18] MEDS ORDERED: CATHETER FLUSH 10 ML SYR IV PRN (20:30)
[2019-10-18] MEDS ORDERED: HOLD METFORMIN - RECEIVED CONTRAST 20 ML VIAL IV SCH (20:30)
[2019-10-18] MEDS ORDERED: ONDANSETRON 4 MG/2 ML (SDV) Z0FRAN ONE (20:43)
[2019-10-18] MEDS ORDERED: ONDANSETRON 4 MG/2 ML (SDV) Z0FRAN IVP ONE (21:00)
[2019-10-18] MEDS ORDERED: PROMETHAZINE INJ 25 MG/ML (PHENERGAN) AMP IVP STA (21:13)
[2019-10-18] MEDS ORDERED: cefTRIAXone FOR IV USE 1,000 MG in WATER (STERILE) FOR INJECTION 10 ML IV ONE (22:15)
--- NOTE | 2019-10-18 22:17 | Diagnostic Imaging Report ---
PROCEDURE: CT abdomen and pelvis with contrast. TECHNIQUE: Multiple contiguous axial images were obtained through the abdomen and pelvis after administration of intravenous contrast. Auto Exposure Controls were utilized during the CT exam to meet ALARA standards for radiation dose reduction. INDICATION: Abdominal pain. CORRELATION STUDY: 07/30/2019. FINDINGS: Examination is compromised with extensive metallic artifact over the lower chest and upper abdomen. Heart size enlarged. Pacemaker leads. Gastroesophageal junction normal. Trace pleural effusions. Bibasilar atelectasis versus infiltrate. There is, however, persistent slightly rounded density in subpleural region in the right lower lobe. Liver, spleen, pancreas and adrenal glands demonstrate no acute abnormality. Cholelithiasis with presence of gallstones at the gallbladder neck. Gallbladder otherwise appears unremarkable. No bile duct dilatation. Fatty atrophic change of the pancreas. Lobulated asymmetric areas of scarring in both kidneys, right slightly greater than left. Calcifications are present. There is presence of a renal stone in the right renal pelvis. There is presence of a right ureteral stent that appears to be in satisfactory position with the right collecting system decompressed. No significant perinephric stranding. There is atherosclerotic change about the abdominal aorta and iliac vessels. Gastrointestinal tract demonstrates moderate amount of retained gastric contents. No small bowel obstruction. Colon is relatively decompressed. A few colonic diverticula without evidence for acute diverticulitis. Negative for appendicitis. No abdominal ascites or free air. Densities in the subcutaneous tissues may be owing to prior subcutaneous injections, nonspecific. Urinary bladder is slightly thick walled likely owing to its decompressed state. The prostate gland is small. Osseous structures demonstrate no acute abnormality. IMPRESSION: 1. Negative for acute abnormality about the abdomen and/or pelvis. 2. Cholelithiasis. 3. Multiple right renal proximal right ureteral calculi with interval placement of a right ureteral stent. No hydronephrosis or obstruction. 4. Consolidation of both lung bases. This may be atelectasis and/or infiltrate. However, there is a somewhat rounded density at the right lung base persisting, appearing unchanged. May reflect chronic rounded atelectasis. The possibility pf neoplasm considered less likely but not excluded. Dictated by: Dictated on workstation # [id number]
[2019-10-18] MEDS ORDERED: PIPERACILLIN SODIUM/TAZOBACTAM 4.5 GM in NS (IVPB) 100 ML IV ONE (22:45)
[2019-10-18 23:18] LABS: INR 2.1 (0.8-1.4)
[2019-10-19] VITALS (19 sets, daily range): BP systolic 130–175; BP diastolic 49–83
[2019-10-19] MEDS ORDERED: LACTATED RINGERS 1,000 ML IV ONE (00:38)
[2019-10-19] MEDS ORDERED: ONDANSETRON 4 MG/2 ML (SDV) Z0FRAN IV PRN (01:00)
[2019-10-19] MEDS ORDERED: fentaNYL INJECTION 100 MCG/2 ML AMP IV PRN (01:00)
[2019-10-19] MEDS: LACTATED RINGERS 1,000 ML IV SCH ×2 (01:10→21:00)
[2019-10-19 03:35] LABS: BASOPHILS % (AUTO) 0 % (0-10); EOSINOPHILS # (AUTO) 0.2 10^3/uL (0.0-0.3); EOSINOPHILS % (AUTO) 2 % (0-10); HEMATOCRIT 32 % (40-54); HEMOGLOBIN 10.3 G/DL (13.3-17.7); LYMPHOCYTES # (AUTO) 1.4 X 10^3 (1.0-4.0); LYMPHOCYTES % (AUTO) 20 % (12-44); MEAN CORPUSCULAR HEMOGLOBIN 27 PG (25-34); MEAN CORPUSCULAR HGB CONC 32 G/DL (32-36); MEAN CORPUSCULAR VOLUME 85 FL (80-99); MEAN PLATELET VOLUME 9.4 FL (7.4-10.4); MONOCYTES # (AUTO) 0.8 X 10^3 (0.0-1.0); MONOCYTES % (AUTO) 12 % (0-12); NEUTROPHILS # (AUTO) 4.9 X 10^3 (1.8-7.8); NEUTROPHILS % (AUTO) 66 % (42-75); PLATELET COUNT 250 10^3/uL (130-400); RED CELL DISTRIBUTION WIDTH 15.9 % (10.0-14.5); WHITE BLOOD COUNT 7.3 10^3/uL (4.3-11.0)
[2019-10-19 03:58] LABS: ALANINE AMINOTRANSFERASE 35 U/L (0-55); ALBUMIN 3.3 GM/DL (3.2-4.5); ALKALINE PHOSPHATASE 107 U/L (40-136); BILIRUBIN,TOTAL 0.5 MG/DL (0.1-1.0); BUN/CREATININE RATIO 14; CALCIUM 8.4 MG/DL (8.5-10.1); CARBON DIOXIDE 23 MMOL/L (21-32); CHLORIDE 106 MMOL/L (98-107); CREATININE SERUM 1.12 MG/DL (0.60-1.30); GFR ESTIMATED > 60; GLUCOSE 110 MG/DL (70-105); POTASSIUM 3.8 MMOL/L (3.6-5.0); SODIUM 139 MMOL/L (135-145); TOTAL PROTEIN 6.3 GM/DL (6.4-8.2)
[2019-10-19] MEDS ORDERED: RT-ALBUTEROL SULF 2.5 MG/3 ML PRE-MIX VIAL INH PRN (04:00)
[2019-10-19] MEDS ORDERED: NS (IVPB) 100 ML ONE (04:12)
[2019-10-19] MEDS ORDERED: PIPERACILLIN/TAZO 4.5 GM VIAL (ZOSYN) IV ONE (04:12)
[2019-10-19] MEDS: PIPERACILLIN/TAZO 4.5 GM/NS 100 ML IV SCH ×6 (04:30→16:49)
--- NOTE | 2019-10-19 07:19 | Diagnostic Imaging Report ---
INDICATION: Right lower lobe infiltrate. Portable chest 10:38 PM There is a dual chamber pacemaker. There are postoperative changes from CABG surgery. There is cardiomegaly. There is a small right pleural effusion. There is some bibasilar atelectasis. IMPRESSION: Improving aeration of the lungs. The previously suspected infiltrate in the right lower lung has improved. Dictated by: Dictated on workstation # [id number]
--- NOTE | 2019-10-19 07:25 | Pulmonary Consultation ---
History of Present Illness History of Present Illness Date Seen by Provider: Oct 19, 2019 Time Seen by Provider: 07:20 Date of Admission History of Present Illness 74yo with hx of oxygen dependent COPD presented to ED sedcondary to N/V abdominal pain. No hematochezia. Allergies and Home Medications Allergies Coded Allergies: No Known Drug Allergies (Unverified , 01/05/12) Home Medications Amoxicillin/Potassium Clav 1 Each Tablet, 1 EACH PO BID Prescribed by: BRITTANY TERRY on 08/13/19 1426 Aspirin 325 Mg Tablet.dr, 325 MG PO DAILY, (Reported) Furosemide 40 Mg Tablet, 40 MG PO DAILY, (Reported) make take add'l 40 mg at 1500 if legs swollen Gabapentin 100 Mg Capsule, 100 MG PO HS, (Reported) Prednisone 20 Mg Tab, 60 MG PO DAILY Prescribed by: BRITTANY TERRY on 08/13/19 142 Past [id number]-[id number] Hx Past Med/Social Hx: Reviewed Nursing Past Med/Soc Hx Patient Social History Alcohol Use: Denies Use Recreational Drug Use: No Former Smoker, Quit: Nov 28, 1975 2nd Hand Smoke Exposure: No Recent Foreign Travel: No Contact w/Someone Who Travel: No Recent Infectious Disease Expo: No Recent Hopitalizations: No Physical Abuse: No Sexual Abuse: No Mistreated: No Immunizations Up To Date Date of Pneumonia Vaccine: Aug 28, 2019 Date of Influenza Vaccine: Aug 28, 2019 Seasonal Allergies Seasonal Allergies: No Past Medical History Surgeries: Yes Coronary Stent, Defibrillator, Open Heart Surgery, Pacemaker Respiratory: Yes COPD Cardiac: Yes (CABG, Pacemaker ) Atrial Fibrillation, Heart Attack, High Cholesterol, Hypertension Neurological: No Reproductive Disorders: No Sexually Transmitted Disease: No Genitourinary: Yes Gastrointestinal: No Musculoskeletal: No Endocrine: No HEENT: No Cancer: No Psychosocial: No Integumentary: No Blood Disorders: No Family Medical History Reviewed Nursing Family Hx No Pertinent Family Hx Sepsis Event Evaluation Height, Weight, BMI Height: 5'11.00" Weight: 260lbs. oz. 117.689866ax; 35.49 BMI Method:Stated Exam Exam Vital Signs Date Time Temp Pulse Resp B/P (MAP) Pulse Ox O2 Delivery O2 Flow Rate FiO2 10/19/19 07:00 67 10/19/19 05:00 67 12 147/73 (97) 99 Nasal Cannula 3.00 10/19/19 04:00 Nasal Cannula 2.00 10/19/19 04:00 66 12 130/67 (88) 98 Nasal Cannula 3.00 10/19/19 03:26 36.4 73 99 32 10/19/19 03:00 75 18 133/71 (91) 98 Nasal Cannula 3.00 10/19/19 02:45 69 15 155/83 (107) 99 Nasal Cannula 3.00 10/19/19 02:30 73 19 136/72 (93) 99 Nasal Cannula 3.00 10/19/19 02:15 71 14 145/57 (86) 100 Nasal Cannula 3.00 10/19/19 02:00 74 12 143/63 (89) 100 Nasal Cannula 3.00 10/19/19 01:45 80 25 142/63 (89) 99 Nasal Cannula 3.00 10/19/19 01:30 76 17 139/62 (87) 99 Nasal Cannula 3.00 10/19/19 01:15 70 22 163/58 (93) 100 Nasal Cannula 3.00 10/19/19 01:00 76 10/19/19 01:00 76 28 175/49 (91) 100 Nasal Cannula 3.00 10/19/19 00:49 36.4 81 22 172/66 99 Nasal Cannula 3.00 3.00 10/19/19 00:45 80 32 158/64 (95) 100 Nasal Cannula 3.00 10/19/19 00:41 36.4 81 22 172/66 (101) 99 Nasal Cannula 3.00 10/18/19 23:27 82 20 136/47 96 Nasal Cannula 2.00 10/18/19 19:17 36.5 77 22 156/41 (79) 96 Room Air I & O 10/19/19 07:00 Intake Total 1300 ml Balance 1300 ml Height & Weight Height: 5'11.00" Weight: 260lbs. oz. 117.886616qi; 35.49 BMI Method:Stated Capillary Refill: Less Than 3 Seconds Gastrointestinal: soft; No guarding, No rebound; tenderness (globally), other (bruising throughout the lower abdomen from previous Lovenox injections per the patient) Results Lab Laboratory Tests 10/18/19 19:38 10/19/19 03:05 Assessment/Plan Assessment/Plan Atelectasis r/o mass -Check CT of Chest with contrast Abdominal pain with N/V with cholelithiasis -Check amylase lipase -Check abdominal US today Cardiomyopathy -Pt has life vest - Cardiology consulted Anemia -Monitor Nephrolithiasis with ureter stent JENNIFER MADSEN DO Oct 19, 2019 07:25 POS
[2019-10-19 07:51] LABS: AMYLASE 46 U/L (25-125); LIPASE 13 U/L (8-78)
[2019-10-19] MEDS ORDERED: HOLD METFORMIN - RECEIVED CONTRAST 20 ML VIAL IV SCH (08:15)
[2019-10-19] MEDS ORDERED: CATHETER FLUSH 10 ML SYR IV PRN (08:15)
[2019-10-19] MEDS ORDERED: NS 100 ML (IVPB) BAG IV ONE (08:15)
[2019-10-19] MEDS ORDERED: IOHEXOL 350 MG/ML 100 ML (OMNIPAQUE 350) VIAL IV ONE (08:15)
--- NOTE | 2019-10-19 09:06 | Diagnostic Imaging Report ---
PROCEDURE: CT chest with contrast only. TECHNIQUE: Multiple contiguous axial images were obtained through the chest after administration of intravenous contrast. Auto Exposure Controls were utilized during the CT exam to meet ALARA standards for radiation dose reduction. INDICATION: Density in the right lower lobe noted on CT abdomen and pelvis study. This study is performed for further evaluation. COMPARISON: Comparison is made with CT abdomen and pelvis study from one day earlier. FINDINGS: Left chest wall cardiac pacemaker remains in place. There are changes of median sternotomy. No axillary lymphadenopathy is seen. Right paratracheal lymph node is slightly prominent with short axis measurement approximately 10 mm. No hilar lymphadenopathy is seen. The heart is enlarged. There is no pericardial fluid. No significant pleural fluid is seen. There may be trace pleural fluid in the right base. Parenchymal evaluation does show some minimal patchy infiltrate in the anterior right upper lobe. Areas of consolidation in bilateral lower lobes posteriorly are noted. The consolidation in the posterior right lower lobe has somewhat more rounded configuration, similar to recent CT. This area measures approximately 4.7 x 2.1 cm. This likely is an area of consolidated pneumonia but other etiologies cannot be entirely excluded. Remainder lung cole are clear. Large amount of artifact from patient's monitoring devices overlie the chest. IMPRESSION: 1. Bibasilar areas of consolidation, right greater as well as patchy infiltrate in the right upper lobe. Area of rounded density in the posterior right lower lobe is seen and similar to one day earlier. This most likely represents an area of consolidated pneumonia. Even so, follow-up CT chest after a course of therapy in four to six weeks is recommended to confirm clearing. 2. Cholelithiasis. Dictated by: Dictated on workstation # [id number]
[2019-10-19] MEDS ORDERED: ALBU2.5V4 NEB (09:40)
[2019-10-19] MEDS ORDERED: ONDA4TAB11 PO (09:40)
[2019-10-19] MEDS ORDERED: CETI10TA17 PO (09:40)
[2019-10-19] MEDS ORDERED: AMIO200T4 PO (09:40)
[2019-10-19] MEDS ORDERED: FLUT16SP22 NS (09:40)
--- NOTE | 2019-10-19 09:46 | Diagnostic Imaging Report ---
INDICATION: Right upper quadrant pain. Patient does have history of kidney stones and gallstones. FINDINGS: The liver is normal in size at 16.7 cm. There is generalized increased echogenicity throughout the liver consistent with hepatic steatosis. No discrete liver mass is identified. The gallbladder does contain several small stones. The gallbladder wall is mildly thickened at 4 mm. The extrahepatic bile duct is slightly prominent at 7-8 mm. Pancreas was obscured by bowel gas. Spleen is normal in size at 10.7 cm. Aorta was obscured. IVC is patent. Both kidneys show cortical thinning. No definite calculi or hydronephrosis is seen. There is no ascites. IMPRESSION: 1. Hepatic steatosis. 2. Cholelithiasis and mild gallbladder wall thickening. Acute cholecystitis cannot be entirely excluded. HIDA scan may be useful for further evaluation. Note is made that the extrahepatic bile duct is slightly prominent at 8 mm. 3. Bilateral renal cortical thinning. No calculi or hydronephrosis is detected. Dictated by: Dictated on workstation # [id number]
[2019-10-19] MEDS ORDERED: WARF-48 PO (09:47)
[2019-10-19] MEDS ORDERED: TAMS0.4C98 PO (09:49)
--- NOTE | 2019-10-19 09:56 | NUR ---
PATIENT STATES HIS DAUGHTER SETS UP HIS MEDICATIONS FOR HIM. HE CALLED HER AND I SPOKE WITH HER OVER THE PHONE. SHE WAS AT HIS HOUSE AND READ TO ME THE BOTTLES SHE USES EVERYDAY TO SET UP HIS MEDS. I COMPARED IT WITH THE EXT MED HX. EXT MED HX SHOWS GABAPENTIN 100MG #90 FILLED 06-08-19 FROM [facility] [place] STATES THEY FILLED A 30 DAY SUPPLY ALSO ON 06-07-19 SO HE WOULD JUST BE ABOUT OUT NOW. EXT MED HX SHOWS FUROSEMIDE 40MG WAS LAST FILLED #180 03-07-19 - [facility] HAD A SCRIPT ON HOLD BUT HAS NEVER SOLD IT, I NOTED HE PAST DUE FILL DATE ON THE MED REC. HIS WARFARIN 5MG WAS FILLED #52 FOR A 90 DAY SUPPLY 09-17-19 HOWEVER HIS DAUGHTER STATES HIS CURRENT DOSE IS 1 TABLET EVERY DAY. SHE STATES HE TAKES IT IN THE MORNING. HE TAKES ASPIRIN 325MG DAILY OTC. HE NO LONGER TAKES THE FOLLOWIN10-10-19 COREG 3.125MG BID #180 08-03-19 CARTIA XT 180MG #90 07-27-19 SOTALOL 80MG 1.5 TABS DAILY
[2019-10-19] MEDS: RT-ALBUTEROL SULF 2.5 MG/3 ML PRE-MIX VIAL INH SCH ×5 (10:58→22:16)
--- NOTE | 2019-10-19 10:58 | History & Physical-Hospitalist ---
ALEYDA KENT,MED STUDENT 10/19/19 1058: History of Present Illness HPI/Chief Complaint CC: Abdominal pain HPI: Pt presents to [facility] ED with complaint of one day of achy periumbilical abdominal pain that began 10/18/2019 when he woke up. He thinks the pain is related to a turkey sandwich he ate the night before. Pain radiates throughout his abdomen. No associated n/v but pain improves with rest. Last BM was morning of 10/18/2019. While in the ED, pt experienced vasovagal symptoms and vomited during first attempted CT scan. He states the fentanyl and vomiting has relieved all his pain. Second CT noted bibasilar infiltrates, nephrolithiasis, and cholelithiasis. Pt denies SHAH, fever/chills, SOB, cough, chest pain. Pt endorses occasional colicky back pain and hematuria but is aware of renal stones. Pt denies nausea/abdominal pain after meals or any specific RUQ pain. Source: patient Exam Limitations: no limitations Date Seen 10/19/19 Time Seen by a Provider: 08:50 Attending Physician Padmini Lee Pankaj K MD Referring Physician Date of Admission Oct 18, 2019 at 22:59 Home Medications & Allergies Home Medications Reviewed patient Home Medication Reconciliation performed by pharmacy medication reconciliations screen making technician and/or nursing. Patients Allergies have been reviewed. Allergies Allergies Coded Allergies No Known Drug Allergies (Unverified01/05/12) Past Zolamnx-Byjree-Ijffzo Hx Past Med/Social Hx: Reviewed Nursing Past Med/Soc Hx Patient Social History Alcohol Use: Denies Use Recreational Drug Use: No Former Smoker, Quit: Nov 28, 1975 2nd Hand Smoke Exposure: No Recent Foreign Travel: No Contact w/other who traveled: No Recent Hopitalizations: No Recent Infectious Disease Expo: No Immunizations Up To Date Date of Pneumonia Vaccine: Aug 28, 2019 Date of Influenza Vaccine: Aug 28, 2019 Seasonal Allergies Seasonal Allergies: No Past Medical History Surgeries: Coronary Stent, Defibrillator, Open Heart Surgery, Pacemaker Cardiac: Atrial Fibrillation, Heart Attack, High Cholesterol, Hypertension Reproductive: No Sexually Transmitted Disease: No History of Blood Disorders: No Family History Reviewed Nursing Family Hx No Pertinent Family Hx Review of Systems Constitutional: No chills, No diaphoresis, No fever, No malaise EENTM: No hearing loss, No ear pain, No eye pain, No vision loss, No nose pain, No throat pain Respiratory: No cough, No dyspnea on exertion, No hemoptysis, No orthopnea, No short of breath Cardiovascular: No chest pain; Hx of Intervention Gastrointestinal: see HPI, abdominal pain (periumbilical, radiating diffusely throughout abdomen ); No constipation, No diarrhea, No dysphagia, No hematemesis, No melena; nausea, vomiting Genitourinary: No frequency; hematuria; No pain Musculoskeletal: back pain (colicky, aware of renal stones ); No joint pain Skin: No lesions, No lumps, No rash Psychiatric/Neurological: Headache Physical Exam Physical Exam Vital Signs Vital Signs - First Documented 10/18/19 10/18/19 10/19/19 19:17 23:27 03:26 Temp 36.5 Pulse 77 Resp 22 B/P (MAP) 156/41 (79) Pulse Ox 96 O2 Delivery Room Air O2 Flow Rate 2.00 FiO2 32 Capillary Refill : Less Than 3 Seconds Height, Weight, BMI Height: 5'11.00" Weight: 260lbs. oz. 117.098632un; 35.49 BMI Method:Stated General Appearance: No Apparent Distress, WD/WN, Obese Eyes: Bilateral Eye Normal Inspection, Bilateral Eye PERRL, Bilateral Eye EOMI HEENT: Pharynx Normal, Moist Mucous Membranes Neck: Non Tender, Supple Respiratory: Chest Non Tender, No Accessory Muscle Use, No Respiratory Distress Cardiovascular: Regular Rate, Rhythm, No Edema, No Murmur, Normal Peripheral Pulses (radial) Gastrointestinal: Non Tender, Soft Extremity: No Calf Tenderness, No Pedal Edema Neurologic/Psychiatric: Alert, Oriented x3, Normal Mood/Affect Skin: Normal Color, Warm/Dry Results Results/Procedures Labs Laboratory Tests 10/18/19 19:38 10/19/19 03:05 Patient resulted labs reviewed. Imaging: Reviewed Imaging Films, Reviewed Imaging Report Assessment/Plan Admission Diagnosis Pneumonia Admission Status: Inpatient Order (span 2 midnights) Reason for Inpatient Admission: Pneumonia requiring IV antibiotics and monitoring Assessment and Plan Pneumonia Hematuria Nephrolithiasis Cholelithiasis Abdominal pain of unknown origin Anemia Hypoxia Pt admitted for IV antibiotics Renal and gallbladder USG Echocardiogram NC 2L Consulting Pulm for respiratory support Consulting Cardiology for hx HF, cardiac interventions, pacemaker Consulting Surgery for cholelithiasis and anemia Hematuria likely d/t nephrolithiasis PADMINI LEE DO 10/19/19 1714: History of Present Illness HPI/Chief Complaint CC: Abdominal pain with Syncopal episode in CT scanner HPI: This is 74yoWM who was [facility] ER Dr. Singleton after complainingof abdominal pain. CT scan withcontrast revealed gallstonesbut he suffered a syncopal episode while in the CT scanner prompting admission to the hospital. was consulted along with cardiology and ultrasound revealed chololithiasis and Dr. Mohr has been consulted. Source: patient Exam Limitations: no limitations Past Ujziigq-Cdxdps-Mogkuo Hx Past Med/Social Hx: Reviewed Nursing Past Med/Soc Hx, Reviewed and Corrections made Review of Systems Constitutional: dizziness, weakness Gastrointestinal: abdominal pain (periumbilical, radiating diffusely throughout abdomen ), vomiting Physical Exam Physical Exam General Appearance: No Apparent Distress, Chronically ill, Obese Eyes: Right Eye Normal Inspection, Right Eye PERRL HEENT: PERRL/EOMI, Normal ENT Inspection, Pharynx Normal, Moist Mucous Membranes Neck: Full Range of Motion, Normal Inspection, Non Tender Respiratory: Chest Non Tender, Lungs Clear, Normal Breath Sounds, No Accessory Muscle Use, No Respiratory Distress Cardiovascular: Regular Rate, Rhythm, No Edema, No Gallop, No JVD, No Murmur, Normal Peripheral Pulses Gastrointestinal: Normal Bowel Sounds, No Organomegaly, No Pulsatile Mass, Non Tender, Soft Back: Normal Inspection, No CVA Tenderness, No Vertebral Tenderness Extremity: Normal Capillary Refill, Normal Inspection, Normal Range of Motion, Non Tender, No Calf Tenderness, No Pedal Edema Neurologic/Psychiatric: Alert, Oriented x3, No Motor/Sensory Deficits, Normal Mood/Affect Skin: Normal Color, Warm/Dry Lymphatic: No Adenopathy Assessment/Plan Admission Diagnosis Assesment: Pneumonia Syncopal episode Gallstones Abd pain CAD PVD Plan: Abx Nebs O2 Choly? Admission Status: Inpatient Order (span 2 midnights) Reason for Inpatient Admission: Multisystem organ dysfunction will require 3 days Diagnosis/Problems Diagnosis/Problems (1) Pneumonia of both lower lobes Status: Acute Qualifiers: Pneumonia type: due to unspecified organism Qualified Codes: J18.1 - Lobar pneumonia, unspecified organism (2) UTI (urinary tract infection) Status: Acute Qualifiers: Urinary tract infection type: acute cystitis Hematuria presence: without hematuria Qualified Codes: N30.00 - Acute cystitis without hematuria (3) Sepsis Status: Acute Qualifiers: Sepsis type: sepsis due to unspecified organism Sepsis acute organ dysfunction status: without acute organ dysfunction Qualified Codes: A41.9 - Sepsis, unspecified organism (4) Hypoxia Status: Acute (5) Elevated brain natriuretic peptide (BNP) level Status: Acute Supervisory-Addendum Brief Verification & Attestation Participated in pt care: history, MDM, physical Personally performed: exam, history, MDM, supervision of care Care discussed with: Medical Student Procedures: n/a Results interpretation: Verified all documentation Verification and Attestation of Medical Student E/M Service A medical student performed and documented this service in my presence. I reviewed and verified all information documented by the medical student and made modifications to such information, when appropriate. I personally performed the physical exam and medical decision making. Padmini Lee, Oct 19, 2019,17:14 ALEYDA KENT,MED STUDENT Oct 19, 2019 10:58 PADMINI ROGER DO Oct 19, 2019 17:14 POS
--- NOTE | 2019-10-19 11:59 | Consultation-Cardiology ---
HPI-Cardiology Cardiology Consultation: Date of Consultation 10/19/19 Date of Admission Attending Physician Padmini Hodge DO Admitting Physician Lex Thomas MD Consulting Physician Wilfredo MONTOYA MD HPI: Time Seen by a Provider: 09:00 Chief Complaint: Abdominal discomfort. This is a 74-year-old gentleman who follows with cardiology in [place]. He has history of CABG, stents, permanent pacemaker, cardiomyopathy wearing a LifeVest. He presents with abdominal discomfort yesterday. He denies any significant cardiac complaints including shortness of breath, chest pain, syncop e, near-syncope. Abdominal discomfort for almost a day. Moderate severity. In the epigastric area. Resting improved the discomfort. No associated cardiac or abdominal symptoms. Review of Systems-Cardiology Review of Systems Constitutional: As described under HPI; No As described under HPI, No no symptoms reported, No chills, No fever, No lightheadedness Eyes: No As described under HPI, No no symptoms reported, No blindness, No blurred vision, No contact lenses, No drainage, No decreased acuity, No foreign body sensation, No pain, No vision change Ears/Nose/Throat: No As described under HPI, No no symptoms reported, No chronic hearing loss, No ear discharge, No ear pain, No nasal drainage, No ulcerations Respiratory: No no symptoms reported; As described under HPI; No As described under HPI, No cough, No orthopnea, No shortness of breath, No SOB with excertion Cardiovascular: No no symptoms reported; As described under HPI; No As described under HPI, No chest pain, No edema, No irregular heart rate, No lightheadedness, No palpitations Gastrointestinal: No no symptoms reported, No As described under HPI, No abdomen distended; abdominal pain; No blood streaked bowels, No constipation, No diarrhea, No nausea, No vomiting, No stool coloration changes Genitourinary: No As described under HPI, No burning, No dysuria, No discharge, No frequency, No flank pain, No hematuria, No urgency Skin: No rash, No skin related problems, No ulcerations Psychiatric/Neurological: No anxiety, No depression, No seizure, No focal weakness, No syncope Hematologic: No bleeding abnormalities All Other Systems Reviewed Negative Unless Noted: Yes JRK-Trdhvl-Toqdbz Hx Patient Social History Alcohol Use: Denies Use Recreational Drug Use: No 2nd Hand Smoke Exposure: No Recent Foreign Travel: No Recent Infectious Disease Expo: No Immunizations Up To Date Date of Pneumonia Vaccine: Aug 28, 2019 Date of Influenza Vaccine: Aug 28, 2019 Past Medical History PMH As described under Assessment. Allergies and Home Medications Allergies Coded Allergies: No Known Drug Allergies (Unverified , 01/05/12) Home Medications Albuterol Sulfate 2.5 Mg/3 Ml Vial.neb, 2.5 MG NEB Q6H PRN for SHORTNESS OF BREATH, (Reported) Amiodarone HCl 200 Mg Tablet, 200 MG PO DAILY, (Reported) Aspirin 325 Mg Tablet.dr, 325 MG PO DAILY, (Reported) Cetirizine HCl 10 Mg Tablet, 10 MG PO DAILY, (Reported) Fluticasone Propionate 16 Gm [place].susp, 1 SPRAY NS DAILY PRN for ALLERGIES, (Reported) Furosemide 40 Mg Tablet, 40 MG PO BID, (Reported) LAST FILLED #180 03-07-19 Gabapentin 100 Mg Capsule, 100 MG PO DAILY, (Reported) Lisinopril 2.5 Mg Tablet, 2.5 MG PO HS, (Reported) Ondansetron 4 Mg Tab.rapdis, 4 MG PO Q8H PRN for NAUSEA/VOMITING-1ST LINE, (Reported) Tamsulosin HCl 0.4 Mg Cap, 0.4 MG PO 1800, (Reported) Warfarin Sodium 5 Mg Tablet, 5 MG PO DAILY, (Reported) Patient Home Medication List Home Medication List Reviewed: Yes Physical Exam-Cardiology Physical Exam Vital Signs/I&O 10/19/19 10/19/19 10/19/19 10/19/19 01:45 02:00 02:15 02:30 Pulse 80 74 71 73 Resp 25 12 14 19 B/P (MAP) 142/63 (89) 143/63 (89) 145/57 (86) 136/72 (93) Pulse Ox 99 100 100 99 O2 Delivery Nasal Cannula Nasal Cannula Nasal Cannula Nasal Cannula O2 Flow Rate 3.00 3.00 3.00 3.00 10/19/19 10/19/19 10/19/19 10/19/19 02:45 03:00 03:26 04:00 Temp 36.4 Pulse 69 75 73 66 Resp 15 18 12 B/P (MAP) 155/83 (107) 133/71 (91) 130/67 (88) Pulse Ox 99 98 99 98 O2 Delivery Nasal Cannula Nasal Cannula Nasal Cannula O2 Flow Rate 3.00 3.00 3.00 FiO2 32 10/19/19 10/19/19 10/19/19 10/19/19 04:00 05:00 07:00 08:00 Pulse 67 67 67 Resp 12 29 B/P (MAP) 147/73 (97) 144/57 (86) Pulse Ox 99 99 O2 Delivery Nasal Cannula Nasal Cannula Nasal Cannula O2 Flow Rate 2.00 3.00 3.00 10/19/19 10/19/19 10/19/19 10:58 12:00 12:42 Pulse 67 80 Resp 29 B/P (MAP) 144/57 (86) Pulse Ox 97 99 O2 Delivery Nasal Cannula Nasal Cannula O2 Flow Rate 3.00 10/19/19 00:00 Intake Total 1100 ml Balance 1100 ml Capillary Refill : Less Than 3 Seconds Constitutional: appears stated age, AAO x 3; No apparent distress; well- developed, well-nourished HEENT: PERRL; No discharge; hearing is well preserved, oral hygience is good; No ulceration, No xanthelasmas are seen Neck: No carotid bruit; carotid pulses are 2 + bilaterally Respiratory: chest is bilaterally symmetric, lungs clear to auscultation Cardiovascular: regular rate-rhythm, S1 and S2 Gastrointestinal: soft, tenderness, audible bowel sounds; No spleenomegaly Rectal: deferred Extremities: normal range of motion, non-tender, normal inspection; No clubbing, No cyanosis; no lower extremity edema bilateral; No significant edema Neurologic/Psychiatric: no motor/sensory deficits, alert, normal mood/affect, oriented x 3, power is 5/5 both on sides Skin: normal color; No rash, No ulcerations Data Review Labs Laboratory Tests 10/18/19 19:16: Urine Color AMBERH, Urine Clarity CLOUDY, Urine pH 5.5, Urine Specific [place] 1.015L, Urine Protein 1+H, Urine Glucose (UA) NEGATIVE, Urine Ketones NEGATIVE, Urine Nitrite NEGATIVE, Urine Bilirubin NEGATIVE, Urine Urobilinogen 0.2, Urine Leukocyte Esterase 1+H, Urine RBC (Auto) 3+H, Urine RBC >100H, Urine WBC 5-10H, Urine Squamous Epithelial Cells NONE, Urine Crystals NONE, Urine Bacteria TRACE, Urine Casts PRESENT, Urine Hyaline Casts 5-10H, Urine Mucus MODERATEH, Urine Culture Indicated YES 10/18/19 19:38: White Blood Count 9.8, Red Blood Count 4.26L, Hemoglobin 11.4L, Hematocrit 37L, Mean Corpuscular Volume 88, Mean Corpuscular Hemoglobin 27, Mean Corpuscular Hemoglobin Concent 31L, Red Cell Distribution Width 15.6H, Platelet Count 262, Mean Platelet Volume 9.8, Neutrophils (%) (Auto) 68, Lymphocytes (%) (Auto) 21, Monocytes (%) (Auto) 8, Eosinophils (%) (Auto) 2, Basophils (%) (Auto) 1, Neutrophils # (Auto) 6.6, Lymphocytes # (Auto) 2.1, Monocytes # (Auto) 0.8, Eosinophils # (Auto) 0.2, Basophils # (Auto) 0.1, Sodium Level 136, Potassium Level 4.2, Chloride Level 100, Carbon Dioxide Level 21, Anion Gap 15H, Blood Urea Nitrogen 19H, Creatinine 1.25, Estimat Glomerular Filtration Rate 57, BUN/Creatinine Ratio 15, Glucose Level 126H, Calcium Level 9.3, Corrected Calcium 9.8, Total Bilirubin 0.4, Aspartate Amino Transf (AST/SGOT) 32, Alanine Aminotransferase (ALT/SGPT) 41, Alkaline Phosphatase 121, C-Reactive Protein 2.07H, Total Protein 7.3, Albumin 3.4 10/18/19 21:25: Lactic Acid Level 2.47*H 10/18/19 23:25: Lactic Acid Level 1.09 10/19/19 03:05: White Blood Count 7.3, Red Blood Count 3.78L, Hemoglobin 10.3L, Hematocrit 32L, Mean Corpuscular Volume 85, Mean Corpuscular Hemoglobin 27, Mean Corpuscular Hemoglobin Concent 32, Red Cell Distribution Width 15.9H, Platelet Count 250, Mean Platelet Volume 9.4, Neutrophils (%) (Auto) 66, Lymphocytes (%) (Auto) 20, Monocytes (%) (Auto) 12, Eosinophils (%) (Auto) 2, Basophils (%) (Auto) 0, Neutrophils # (Auto) 4.9, Lymphocytes # (Auto) 1.4, Monocytes # (Auto) 0.8, Eosinophils # (Auto) 0.2, Basophils # (Auto) 0.0, Sodium Level 139, Potassium Level 3.8, Chloride Level 106, Carbon Dioxide Level 23, Anion Gap 10, Blood Urea Nitrogen 16, Creatinine 1.12, Estimat Glomerular Filtration Rate > 60, BUN/Creatinine Ratio 14, Glucose Level 110H, Calcium Level 8.4L, Corrected Calcium 9.0, Total Bilirubin 0.5, Aspartate Amino Transf (AST/SGOT) 24, Alanine Aminotransferase (ALT/SGPT) 35, Alkaline Phosphatase 107, Total Protein 6.3L, Albumin 3.3, Amylase Level 46, Lipase 13 A/P-Cardiology Assessment/Admission Diagnosis Acute abdominal discomfort, Cholelithiasis, Acute cystitis, Lobar pneumonia, Sepsis, CAD, CABG, Permanent pacemaker, On oral anticoagulation, Cardiomyopathy, wearing a LifeVest. Plan Acute abdominal discomfort, Cholelithiasis, Acute cystitis, IV antibiotics. Lobar pneumonia, IV antibiotics, deferred to the primary team. Sepsis, likely due to pneumonia and cystitis. Positive lactate. IV fluids. CAD, CABG, no chest pain or shortness of breath. Permanent pacemaker, no active issues. On oral anticoagulation, unclear reason. Likely due to atrial fibrillation. Since the patient is also on amiodarone. Cardiomyopathy, wearing a LifeVest. Echocardiogram. Thank you for your consultation. Please call me if you have any questions. Derrick Montoya MD, FACP, FACC, FSCAI, FHRS, CCDS Interventional Cardiology Cardiac Electrophysiology Vascular Medicine and Endovascular Interventions Wilfredo MONTOYA MD Oct 19, 2019 11:59 am POS
[2019-10-19] MEDS ORDERED: RT-ALBUTEROL SULF 2.5 MG/3 ML PRE-MIX VIAL IH PRN (13:30)
[2019-10-19] MEDS ORDERED: FLUTICASONE NASAL SPRAY (FLONASE) 16 GM BTL NS PRN (13:30)
[2019-10-19] MEDS ORDERED: ONDANSETRON 4 MG (ZOFRAN) ORAL DISSOLVE TAB PO PRN (13:30)
--- NOTE | 2019-10-19 13:42 | Consultation - Surgery ---
History of Present Illness History of Present Illness Patient Consulted On(darryl/time) 10/19/19 13:37 Time Seen by Provider: 13:19 History of Present Illness Surgery asked to consult regarding abdominal pain and cholelithiasis. HPI per ED: Here with report of midabdominal pain is started this morning. It has been going on all day. States he woke up this morning with this pain. He did eat a turkey sandwich that was low sodium last night and then had the pain this morning. He did have a normal bowel movement this morning without blood. Has had some abnormal urine recently that is cloudy. He knows that he has blood in his urine and that's long-standing that hasn't changed. He is wearing a life vest and does have pacemaker placed. Denies chest pain, breathing problems or vomiting. Pain is central and radiates each way laterally from the central pain. Timing/Duration: 12 Hours Severity/Quality: Moderate, Severe, Aching Location: Epigastric, Periumbilical Radiation: RUQ, LUQ, RLQ, LLQ Activities at Onset: None Modifying Factors: Improves With Resting Associated Symptoms: No Back Pain, No Chest Pain, No Fever/Chills, No Heartburn, No Nausea/Vomiting, No Shortness of Air, No Weakness When I spoke to pt this afternoon he states "it was food poisoning", he bought turkey and made a sandwich....he then woke up the next day with severe abdominal pain. He states the pain was across entire abdomen, sharp and crampy. He called the pain "12 out of 10" and that is why he went to the ER. He has never had pain like this before, but he has had occasional stomach pain. The pain has never been associated with food. He does state that "Dr. Thomas has been on me for years to get my gallbladder out." He states the pain meds from the ER and then vomiting made all the pain go away. Allergies and Home Medications Allergies Coded Allergies: No Known Drug Allergies (Unverified , 01/05/12) Home Medications Albuterol Sulfate 2.5 Mg/3 Ml Vial.neb, 2.5 MG NEB Q6H PRN for SHORTNESS OF BREATH, (Reported) Amiodarone HCl 200 Mg Tablet, 200 MG PO DAILY, (Reported) Aspirin 325 Mg Tablet.dr, 325 MG PO DAILY, (Reported) Cetirizine HCl 10 Mg Tablet, 10 MG PO DAILY, (Reported) Fluticasone Propionate 16 Gm [place].susp, 1 SPRAY NS DAILY PRN for ALLERGIES, (Reported) Furosemide 40 Mg Tablet, 40 MG PO BID, (Reported) LAST FILLED #180 03-07-19 Gabapentin 100 Mg Capsule, 100 MG PO DAILY, (Reported) Lisinopril 2.5 Mg Tablet, 2.5 MG PO HS, (Reported) Ondansetron 4 Mg Tab.rapdis, 4 MG PO Q8H PRN for NAUSEA/VOMITING-1ST LINE, (Reported) Tamsulosin HCl 0.4 Mg Cap, 0.4 MG PO 1800, (Reported) Warfarin Sodium 5 Mg Tablet, 5 MG PO DAILY, (Reported) Patient Home Medication List Home Medication List Reviewed: Yes Past Xcyasph-Edmkql-Poqded Hx Patient Social History Alcohol Use: Denies Use Recreational Drug Use: No Smoking Status: Former Smoker (quit 40yrs ago, prior to that smoked a pack every 3 days for 15 yrs) Former Smoker, Quit: Nov 28, 1975 2nd Hand Smoke Exposure: No Recent Foreign Travel: No Contact w/Someone Who Travel: No Recent Infectious Disease Expo: No Recent Hopitalizations: No Immunizations Up To Date Date of Pneumonia Vaccine: Aug 28, 2019 Date of Influenza Vaccine: Aug 28, 2019 Seasonal Allergies Seasonal Allergies: No Surgeries History of Surgeries: Yes Surgeries: Coronary Stent, Defibrillator, Open Heart Surgery, Pacemaker Respiratory History of Respiratory Disorde: Yes Respiratory Disorders: COPD Cardiovascular History of Cardiac Disorders: Yes (CABG, Pacemaker ) Cardiac Disorders: Atrial Fibrillation, Heart Attack, High Cholesterol, H ypertension Neurological History of Neurological Disord: No Reproductive System Hx Reproductive Disorders: No Sexually Transmitted Disease: No Genitourinary History of Genitourinary Disor: Yes Gastrointestinal History of Gastrointestinal Di: No Musculoskeletal History of Musculoskeletal Dis: No Endocrine History of Endocrine Disorders: No HEENT History of HEENT Disorders: No Cancer History of Cancer: No Psychosocial History of Psychiatric Problem: No Integumentary History of Skin or Integumenta: No Blood Transfusions History of Blood Disorders: No Family Medical History Significant Family History: Heart Disease (Father of DC, younger brother had DC, older brother had CABG x 2) Review of Systems-General Constitutional: No chills, No diaphoresis, No weakness EENTM: No blurred vision, No double vision, No mouth swelling, No epistaxis Respiratory: No cough, No dyspnea on exertion, No hemoptysis Cardiovascular: No chest pain; edema, Hx of Intervention Gastrointestinal: abdominal pain; No hematemesis, No heartburn, No melena; nausea, vomiting Genitourinary: No dysuria; frequency; No hematuria; other (kidney stones) Musculoskeletal: joint pain, joint swelling, muscle pain, muscle stiffness Skin: No change in color, No change in hair/nails Psychiatric/Neurological: Denies Anxiety, Denies Depressed, Denies Seizure, Denies Tremors Other pt states he bruises and bleed easily because he is on blood thinners. Denies heat or cold intolerance Physical Exam-General Problems Physical Exam Vital Signs Vital Signs - First Documented 10/18/19 10/18/19 10/19/19 19:17 23:27 03:26 Temp 36.5 Pulse 77 Resp 22 B/P (MAP) 156/41 (79) Pulse Ox 96 O2 Delivery Room Air O2 Flow Rate 2.00 FiO2 32 Capillary Refill : Less Than 3 Seconds General Appearance: WD/WN, no apparent distress Eyes: Bilateral Eye PERRL, Bilateral Eye EOMI HEENT: pharynx normal; No scleral icterus (R), No scleral icterus (L) Neck: non-tender, supple Respiratory: chest non-tender, lungs clear, normal breath sounds, no respiratory distress, no accessory muscle use Cardiovascular: regular rate, rhythm, no murmur Gastrointestinal: normal bowel sounds, soft, no organomegaly, hernia (small umbilical hernia) Rectal: deferred Back: no CVA tenderness, no vertebral tenderness Extremities: no calf tenderness, normal capillary refill, pedal edema (mild) Neurologic/Psychiatric: agency trainer II-XII nml as tested, alert, normal mood/affect, oriented x 3 Skin: normal color, warm/dry Lymphatic: no adenopathy (neck, axilla or groin) Data Review Labs Laboratory Tests 10/18/19 19:16: Urine Color AMBERH, Urine Clarity CLOUDY, Urine pH 5.5, Urine Specific [place] 1.015L, Urine Protein 1+H, Urine Glucose (UA) NEGATIVE, Urine Ketones NEGATIVE, Urine Nitrite NEGATIVE, Urine Bilirubin NEGATIVE, Urine Urobilinogen 0.2, Urine Leukocyte Esterase 1+H, Urine RBC (Auto) 3+H, Urine RBC >100H, Urine WBC 5-10H, Urine Squamous Epithelial Cells NONE, Urine Crystals NONE, Urine Bacteria TRACE, Urine Casts PRESENT, Urine Hyaline Casts 5-10H, Urine Mucus MODERATEH, Urine Culture Indicated YES 10/18/19 19:38: White Blood Count 9.8, Red Blood Count 4.26L, Hemoglobin 11.4L, Hematocrit 37L, Mean Corpuscular Volume 88, Mean Corpuscular Hemoglobin 27, Mean Corpuscular Hemoglobin Concent 31L, Red Cell Distribution Width 15.6H, Platelet Count 262, Mean Platelet Volume 9.8, Neutrophils (%) (Auto) 68, Lymphocytes (%) (Auto) 21, Monocytes (%) (Auto) 8, Eosinophils (%) (Auto) 2, Basophils (%) (Auto) 1, Neutrophils # (Auto) 6.6, Lymphocytes # (Auto) 2.1, Monocytes # (Auto) 0.8, Eosinophils # (Auto) 0.2, Basophils # (Auto) 0.1, Sodium Level 136, Potassium Level 4.2, Chloride Level 100, Carbon Dioxide Level 21, Anion Gap 15H, Blood U arun Nitrogen 19H, Creatinine 1.25, Estimat Glomerular Filtration Rate 57, BUN/Creatinine Ratio 15, Glucose Level 126H, Calcium Level 9.3, Corrected Calcium 9.8, Total Bilirubin 0.4, Aspartate Amino Transf (AST/SGOT) 32, Alanine Aminotransferase (ALT/SGPT) 41, Alkaline Phosphatase 121, C-Reactive Protein 2.07H, Total Protein 7.3, Albumin 3.4 10/18/19 21:25: Lactic Acid Level 2.47*H 10/18/19 23:25: Lactic Acid Level 1.09 10/19/19 03:05: White Blood Count 7.3, Red Blood Count 3.78L, Hemoglobin 10.3L, Hematocrit 32L, Mean Corpuscular Volume 85, Mean Corpuscular Hemoglobin 27, Mean Corpuscular Hemoglobin Concent 32, Red Cell Distribution Width 15.9H, Platelet Count 250, Mean Platelet Volume 9.4, Neutrophils (%) (Auto) 66, Lymphocytes (%) (Auto) 20, Monocytes (%) (Auto) 12, Eosinophils (%) (Auto) 2, Basophils (%) (Auto) 0, Neutrophils # (Auto) 4.9, Lymphocytes # (Auto) 1.4, Monocytes # (Auto) 0.8, Eosinophils # (Auto) 0.2, Basophils # (Auto) 0.0, Sodium Level 139, Potassium Level 3.8, Chloride Level 106, Carbon Dioxide Level 23, Anion Gap 10, Blood Urea Nitrogen 16, Creatinine 1.12, Estimat Glomerular Filtration Rate > 60, BUN/Creatinine Ratio 14, Glucose Level 110H, Calcium Level 8.4L, Corrected Calcium 9.0, Total Bilirubin 0.5, Aspartate Amino Transf (AST/SGOT) 24, Alanine Aminotransferase (ALT/SGPT) 35, Alkaline Phosphatase 107, Total Protein 6.3L, Albumin 3.3, Amylase Level 46, Lipase 13 Assessment/Plan Assessment/Plan Assessment/Plan Cholelithiasis/Cholecystitis Abdominal pain CAD CHF Pt is looking much better and does not have any abdominal pain right now; US did show mild thickening of the gallbladder wall. Pt is anti-coagulated and has very poor cardiac function. I told him he most likely needs his GB out; but timing needs to be discussed. I can't do it today because his INR is 2.1 and he needs cardiac clearance. If we do this as an inpt, it would be best to make sure he is maximized from cardiac and pulmonary standpoint. He will need to be cleared if we do this as an outpt also. Since he is no longer having pain; doing the surgery is not a reason to keep him in the hospital (I believe he is motivated to finally have the gallbladder removed). If he winds up staying for cardiac or pulmonary issues than we could plan for surgery on Tuesday afternoon. I discussed the procedure with the pt; risks and complications not limited to pain, bleeding, infection, scar, damage to bowel or bile ducts and need for further procedure. All questions answered to his satisfaction. MIA PHELAN DO Oct 19, 2019 13:42 POS
[2019-10-19] MEDS ORDERED: AMIODARONE 200 MG (CORDARONE) TAB ONE (16:42)
[2019-10-19] MEDS: AMIODARONE 200 MG (CORDARONE) TAB PO SCH (16:46)
[2019-10-19] MEDS: FUROSEMIDE 40 MG (LASIX) TAB PO SCH (16:46)
--- NOTE | 2019-10-19 16:53 | NUR ---
AMIODARONE GIVEN PER PT REQUEST AFRAID HE WILL GO BACK IN TO [facility]. MED REORDERED BY DR LEE.
[2019-10-19] MEDS ORDERED: warFARin 5 MG (COUMADIN) TAB PO SCH (18:00)
[2019-10-19] MEDS ORDERED: TAMSULOSIN 0.4 MG (FLOMAX) CAP PO SCH (18:00)
[2019-10-19] MEDS ORDERED: lisINopril 5 MG (PRINIVIL) TABLET PO SCH (21:00)
[2019-10-19] MEDS ORDERED: NON-FORMULARY MEDICATION 1 EA EA (Lisinopril 2.5 MG) PO SCH (21:00)
[2019-10-20] VITALS: BP 164/56
[2019-10-20] MEDS: RT-ALBUTEROL SULF 2.5 MG/3 ML PRE-MIX VIAL INH SCH ×3 (02:20→09:09)
[2019-10-20 03:37] LABS: BASOPHILS % (AUTO) 0 % (0-10); EOSINOPHILS # (AUTO) 0.3 10^3/uL (0.0-0.3); EOSINOPHILS % (AUTO) 4 % (0-10); HEMATOCRIT 30 % (40-54); HEMOGLOBIN 9.3 G/DL (13.3-17.7); LYMPHOCYTES % (AUTO) 30 % (12-44); MEAN CORPUSCULAR HEMOGLOBIN 27 PG (25-34); MEAN CORPUSCULAR HGB CONC 31 G/DL (32-36); MEAN CORPUSCULAR VOLUME 87 FL (80-99); MEAN PLATELET VOLUME 9.5 FL (7.4-10.4); MONOCYTES # (AUTO) 0.9 X 10^3 (0.0-1.0); MONOCYTES % (AUTO) 13 % (0-12); NEUTROPHILS # (AUTO) 3.5 X 10^3 (1.8-7.8); NEUTROPHILS % (AUTO) 53 % (42-75); PLATELET COUNT 228 10^3/uL (130-400); RED CELL DISTRIBUTION WIDTH 15.8 % (10.0-14.5); WHITE BLOOD COUNT 6.7 10^3/uL (4.3-11.0)
[2019-10-20 03:55] LABS: BUN/CREATININE RATIO 8; CARBON DIOXIDE 22 MMOL/L (21-32); CHLORIDE 105 MMOL/L (98-107); CREATININE SERUM 1.11 MG/DL (0.60-1.30); GFR ESTIMATED > 60; GLUCOSE 98 MG/DL (70-105); MAGNESIUM 1.7 MG/DL (1.6-2.4); PHOSPHORUS 3.2 MG/DL (2.3-4.7); POTASSIUM 3.2 MMOL/L (3.6-5.0); SODIUM 141 MMOL/L (135-145)
--- NOTE | 2019-10-20 04:34 | Pulmonary Progress Note ---
Subjective Time Seen by a Provider: 04:33 Subjective/Events-last exam Pt is doing better. Abdominal pain improved. Sepsis Event Evaluation Height, Weight, BMI Height: 5'.00" Weight: 260lbs. oz. 117.430630tt; 35.49 BMI Method:Stated Focused Exam Lactate Level 10/18/19 21:25: Lactic Acid Level 2.47*H 10/18/19 23:25: Lactic Acid Level 1.09 Exam Exam Vital Signs Date Time Temp Pulse Resp B/P (MAP) Pulse Ox O2 Delivery O2 Flow Rate FiO2 10/20/19 02:20 96 Nasal Cannula 2.00 10/20/19 01:00 85 10/20/19 00:00 Nasal Cannula 2.00 10/20/19 00:00 82 16 164/56 (92) Nasal Cannula 3.00 10/19/19 22:16 98 Nasal Cannula 2.00 10/19/19 21:00 95 Room Air 10/19/19 19:56 Nasal Cannula 2.00 10/19/19 19:42 36.4 81 16 136/72 (93) 94 Nasal Cannula 3.00 10/19/19 19:00 85 10/19/19 18:31 98 Nasal Cannula 2.00 10/19/19 16:00 37.1 10/19/19 16:00 77 16 170/66 (100) Nasal Cannula 3.00 10/19/19 16:00 Nasal Cannula 2.00 10/19/19 14:26 93 Room Air 10/19/19 12:42 80 10/19/19 12:00 67 29 144/57 (86) 99 Nasal Cannula 3.00 10/19/19 12:00 Nasal Cannula 2.00 10/19/19 10:58 97 Nasal Cannula 10/19/19 09:00 96 Room Air 10/19/19 08:00 67 29 144/57 (86) 99 Nasal Cannula 3.00 10/19/19 08:00 Nasal Cannula 2.00 10/19/19 07:00 67 10/19/19 05:00 67 12 147/73 (97) 99 Nasal Cannula 3.00 I & O 10/20/19 06:59 Intake Total 1630 ml Balance 1630 ml Height & Weight Height: 5'11.00" Weight: 260lbs. oz. 117.040878sn; 35.49 BMI Method:Stated General Appearance: No Apparent Distress, Chronically ill, Obese HEENT: PERRL/EOMI, Normal ENT Inspection, Pharynx Normal, Moist Mucous Membranes Neck: Full Range of Motion, Normal Inspection, Non Tender Respiratory: Chest Non Tender, Lungs Clear, Normal Breath Sounds, No Accessory Muscle Use, No Respiratory Distress Cardiovascular: Regular Rate, Rhythm, No Edema, No Gallop, No JVD, No Murmur, Normal Peripheral Pulses Capillary Refill: Less Than 3 Seconds Gastrointestinal: normal bowel sounds, soft, no organomegaly, hernia (small umbilical hernia) Extremity: Normal Capillary Refill, Normal Inspection, Normal Range of Motion, Non Tender, No Calf Tenderness, No Pedal Edema Neurologic/Psychiatric: Alert, Oriented x3, No Motor/Sensory Deficits, Normal Mood/Affect Skin: Normal Color, Warm/Dry Lymphatic: No Adenopathy Results Lab Laboratory Tests 10/18/19 19:38 10/19/19 03:05 10/20/19 03:06 Assessment/Plan Assessment/Plan Atelectasis r/o mass - CT of Chest with contrast -reviewed will repeat as out pt. Abdominal pain with N/V with cholelithiasis -Dr. Mohr is following Cardiomyopathy -Pt has life vest - Cardiology consulted Anemia -Monitor Nephrolithiasis with ureter stent JENNIFER MADSEN DO Oct 20, 2019 04:34 POS
[2019-10-20] MEDS: PIPERACILLIN/TAZO 4.5 GM/NS 100 ML IV SCH ×4 (04:45→11:54)
[2019-10-20 04:46] VITALS: BP 105/39
[2019-10-20 08:00] VITALS: BP 127/47
[2019-10-20] MEDS ORDERED: KCL 20 MEQ TAB (K-DUR) PO ONE ×2 (08:00→10:00)
[2019-10-20] MEDS: FUROSEMIDE 40 MG (LASIX) TAB PO SCH (08:27)
[2019-10-20] MEDS: AMIODARONE 200 MG (CORDARONE) TAB PO SCH (08:28)
[2019-10-20] MEDS ORDERED: NON-FORMULARY MEDICATION 1 EA EA (Cetirizine HCl 10 MG) PO SCH (09:00)
[2019-10-20] MEDS ORDERED: GABAPENTIN 100 MG (NEURONTIN) CAP PO SCH (09:00)
[2019-10-20] MEDS ORDERED: ASPIRIN E.C. 325 MG (ECOTRIN) TABLET PO SCH (09:00)
[2019-10-20] MEDS ORDERED: LORATADINE (CLARITIN) 10 MG TAB PO SCH (09:00)
[2019-10-20] MEDS ORDERED: CEFD300C3 PO (12:23)
--- NOTE | 2019-10-20 12:24 | Discharge Summary ---
Discharge Summary Hospital Course Was the Problem List Reviewed?: Yes Problems/Dx: (1) Pneumonia of both lower lobes Status: Acute Qualifiers: Qualified Codes: J18.1 - Lobar pneumonia, unspecified organism (2) UTI (urinary tract infection) Status: Acute Qualifiers: Qualified Codes: N30.00 - Acute cystitis without hematuria (3) Sepsis Status: Acute Qualifiers: Qualified Codes: A41.9 - Sepsis, unspecified organism (4) Hypoxia Status: Acute (5) Elevated brain natriuretic peptide (BNP) level Status: Acute Hospital Course Date of Admission: Oct 18, 2019 at 22:59 Admission Diagnosis : Family Physician/Provider: Lex Thomas MD Date of Discharge: 10/20/19 Discharge Diagnosis: Bilateral pneumonia, syncopal episode in CT scanner in ER, CAD, CHF on lifevest Hospital Course: Patient had a brief hospital course after admitted for hypoxia and pneumonia and a syncopal episode in ER CT scanner. Pulmonology and Cardiology were consulted. Abx initiated and O2 maintained of which he wears at home. Patient was deemed stable for DC and f/u for gallbladder disease noted on CT scan and USG with Dr Mohr. Labs and Pending Lab Test: Laboratory Tests 10/20/19 03:06: White Blood Count 6.7, Red Blood Count 3.47L, Hemoglobin 9.3L, Hematocrit 30L, Mean Corpuscular Volume 87, Mean Corpuscular Hemoglobin 27, Mean Corpuscular Hemoglobin Concent 31L, Red Cell Distribution Width 15.8H, Platelet Count 228, Mean Platelet Volume 9.5, Neutrophils (%) (Auto) 53, Lymphocytes (%) (Auto) 30, Monocytes (%) (Auto) 13H, Eosinophils (%) (Auto) 4, Basophils (%) (Auto) 0, Neutrophils # (Auto) 3.5, Lymphocytes # (Auto) 2.0, Monocytes # (Auto) 0.9, Eosinophils # (Auto) 0.3, Basophils # (Auto) 0.0, Sodium Level 141, Potassium Level 3.2L, Chloride Level 105, Carbon Dioxide Level 22, Anion Gap 14, Blood Urea Nitrogen 9, Creatinine 1.11, Estimat Glomerular Filtration Rate > 60, BUN/Creatinine Ratio 8, Glucose Level 98, Calcium Level 8.0L, Phosphorus Level 3.2, Magnesium Level 1.7 Microbiology 10/18/19 Blood Culture - Preliminary, Resulted No growth Home Meds Active Reported Flomax (Tamsulosin HCl) 0.4 Mg Cap 0.4 Mg PO 1800 Warfarin Sodium 5 Mg Tablet 5 Mg PO DAILY Fluticasone Propionate 16 Gm [place].susp 1 [place] NS DAILY PRN Cetirizine HCl 10 Mg Tablet 10 Mg PO DAILY Albuterol Sulfate 2.5 Mg/3 Ml Vial.neb 2.5 Mg NEB Q6H PRN Amiodarone HCl 200 Mg Tablet 200 Mg PO DAILY Ondansetron Odt (Ondansetron) 4 Mg Tab.rapdis 4 Mg PO Q8H PRN Furosemide 40 Mg Tablet 40 Mg PO BID LAST FILLED #180 03-07-19 Gabapentin 100 Mg Capsule 100 Mg PO DAILY Lisinopril 2.5 Mg Tablet 2.5 Mg PO HS Aspirin EC (Aspirin) 325 Mg Tablet.dr 325 Mg PO DAILY Assessment/Pt Instructions CHC 1 week Discharge Planning: <30 minutes discharge planning Discharge Instructions Discharge Diet: Cardiac Diet Activity as Tolerated: Yes Discharge Physical Examination Vital Signs Vital Signs Date Time Temp Pulse Resp B/P (MAP) Pulse Ox O2 Delivery O2 Flow Rate FiO2 10/20/19 09:09 96 Nasal Cannula 2.00 10/20/19 08:00 36.8 79 19 127/47 (73) 10/19/19 03:26 32 General Appearance: No Apparent Distress, WD/WN Respiratory: Lungs Clear, Decreased Breath Sounds Cardiovascular: Regular Rate, Rhythm Neurologic/Psychiatric: Alert, Oriented x3, No Motor/Sensory Deficits, Normal Mood/Affect Allergies: Coded Allergies: No Known Drug Allergies (Unverified , 01/05/12) Discharge Summary Date of Admission Oct 18, 2019 at 22:59 Date of Discharge Discharge Date: Oct 20, 2019 Admission Diagnosis Assesment: Pneumonia Syncopal episode Gallstones Abd pain CAD PVD Plan: Abx Nebs O2 Choly? Discharge Diagnosis (1) Pneumonia of both lower lobes Status: Acute Qualifiers: Qualified Codes: J18.1 - Lobar pneumonia, unspecified organism (2) UTI (urinary tract infection) Status: Acute Qualifiers: Qualified Codes: N30.00 - Acute cystitis without hematuria (3) Sepsis Status: Acute Qualifiers: Qualified Codes: A41.9 - Sepsis, unspecified organism (4) Hypoxia Status: Acute (5) Elevated brain natriuretic peptide (BNP) level Status: Acute Clinical Quality Measures DVT/VTE Risk/Contraindication: Risk Factor Score Per Nursin RFS Level Per Nursing on Admit: 3=High YAMILE LEE DO Oct 20, 2019 12:24 POS
--- NOTE | 2019-10-20 12:51 | Cardiology Progress Note ---
Cardiology SOAP Progress Note Subjective: No cardiac complaints. Objective: I&O/Vital Signs 10/20/19 10/20/19 10/20/19 10/20/19 01:00 02:20 04:00 04:46 Temp 36.0 Pulse 85 75 Resp 18 B/P (MAP) 105/39 (61) Pulse Ox 96 93 O2 Delivery Nasal Cannula Nasal Cannula Nasal Cannula O2 Flow Rate 2.00 2.00 3.00 10/20/19 10/20/19 10/20/19 10/20/19 06:31 07:00 08:00 08:00 Temp 36.8 Pulse 73 79 Resp 19 B/P (MAP) 127/47 (73) Pulse Ox 96 94 O2 Delivery Nasal Cannula Nasal Cannula Nasal Cannula O2 Flow Rate 2.00 3.00 2.00 10/20/19 10/20/19 10/20/19 10/20/19 09:00 09:09 12:00 12:00 Temp 36.8 Pulse Ox 95 96 O2 Delivery Room Air Nasal Cannula Nasal Cannula O2 Flow Rate 2.00 2.00 10/20/19 00:00 Intake Total 1630 ml Balance 1630 ml Weight (Pounds): 260 Weight (Calculated Kilograms): 117.452861 Constitutional: appears stated age, AAO x 3; No apparent distress; well- developed, well-nourished Respiratory: chest is bilaterally symmetric, lungs clear to auscultation Cardiovascular: regular rate-rhythm, S1 and S2 Gastrointestional: soft, tenderness, audible bowel sounds; No spleenomegaly Extremities: normal range of motion, non-tender, normal inspection; No clubbing, No cyanosis; no lower extremity edema bilateral; No significant edema Neurologic/Psychiatric: no motor/sensory deficits, alert, normal mood/affect, oriented x 3, power is 5/5 both on sides Skin: normal color; No rash, No ulcerations Results/Procedures: Labs Laboratory Tests 10/20/19 03:06: White Blood Count 6.7, Red Blood Count 3.47L, Hemoglobin 9.3L, Hematocrit 30L, Mean Corpuscular Volume 87, Mean Corpuscular Hemoglobin 27, Mean Corpuscular Hemoglobin Concent 31L, Red Cell Distribution Width 15.8H, Platelet Count 228, Mean Platelet Volume 9.5, Neutrophils (%) (Auto) 53, Lymphocytes (%) (Auto) 30, Monocytes (%) (Auto) 13H, Eosinophils (%) (Auto) 4, Basophils (%) (Auto) 0, Neutrophils # (Auto) 3.5, Lymphocytes # (Auto) 2.0, Monocytes # (Auto) 0.9, Eosinophils # (Auto) 0.3, Basophils # (Auto) 0.0, Sodium Level 141, Potassium Level 3.2L, Chloride Level 105, Carbon Dioxide Level 22, Anion Gap 14, Blood Urea Nitrogen 9, Creatinine 1.11, Estimat Glomerular Filtration Rate > 60, BUN/Creatinine Ratio 8, Glucose Level 98, Calcium Level 8.0L, Phosphorus Level 3.2, Magnesium Level 1.7 Microbiology 10/18/19 Blood Culture - Preliminary, Resulted No growth A/P: Assessment/Dx: Acute abdominal discomfort, Cholelithiasis, Acute cystitis, Lobar pneumonia, Sepsis, CAD, CABG, Permanent pacemaker, On oral anticoagulation, Cardiomyopathy, wearing a LifeVest. Plan: Acute abdominal discomfort, improved. Dr. Mohr to see him as an outpatient. Cholelithiasis, Acute cystitis, IV antibiotics. Lobar pneumonia, IV antibiotics, deferred to the primary team. Improved. Sepsis, likely due to pneumonia and cystitis. Positive lactate. IV fluids. Improved. CAD, CABG, no chest pain or shortness of breath. Permanent pacemaker, no active issues. On oral anticoagulation, unclear reason. Likely due to atrial fibrillation. Since the patient is also on amiodarone. Cardiomyopathy, wearing a LifeVest. Echocardiogram. Patient will follow his outpatient test engineering intern on Tuesday. Explained to the patient. If he has any acute cardiac issues he should seek immediate medical attention. Thank you for your consultation. Please call me if you have any questions. Derrick Montoya MD, FACP, FACC, FSCAI, FHRS, CCDS Interventional Cardiology Cardiac Electrophysiology Vascular Medicine and Endovascular Interventions Focused Exam Lactate Level 10/18/19 21:25: Lactic Acid Level 2.47*H 10/18/19 23:25: Lactic Acid Level 1.09 Wilfredo MONTOYA MD Oct 20, 2019 12:51 POS
[2019-10-20 13:30] VITALS: BP 128/65
[2019-10-20 13:38] VITALS: BP 128/65
== END 2019-10-20 14:47 | disposition home or self-care (01) | DRG 871 ==
LOC: EDUNIT# 19:14 → ER FS 19:15 → ICU 22:59
PROVIDERS: ADMIT Internal Medicine; ATTEND Internal Medicine
DX: A41.9 Sepsis, unspecified organism (principal); J18.1 Lobar pneumonia, unspecified organism; J44.0 Chronic obstructive pulmonary disease with (acute) lower respiratory infection; I42.9 Cardiomyopathy, unspecified; K80.10 Calculus of gallbladder with chronic cholecystitis without obstruction; I48.91 Unspecified atrial fibrillation; E78.00 Pure hypercholesterolemia, unspecified; D64.9 Anemia, unspecified; R09.02 Hypoxemia; N20.0 Calculus of kidney; I11.0 Hypertensive heart disease with heart failure; I50.9 Heart failure, unspecified; N30.91 Cystitis, unspecified with hematuria; I25.10 Atherosclerotic heart disease of native coronary artery without angina pectoris; I73.9 Peripheral vascular disease, unspecified; Z95.5 Presence of coronary angioplasty implant and graft; Z79.82 Long term (current) use of aspirin; Z79.52 Long term (current) use of systemic steroids; Z87.891 Personal history of nicotine dependence; Z95.1 Presence of aortocoronary bypass graft; Z99.81 Dependence on supplemental oxygen
CPT/HCPCS: 36415; 71045; 71260; 74177; 76700; 80048; 80053; 81000; 82150; 83605; 83690; 83735; 84100; 85025; 85610; 85730; 86141; 87040; 87088; 93306; 94640; 94664